=== PATIENT | female | born 1930 | race Caucasian/White ===

== ENCOUNTER 2018-01-29 17:03 | Emergency (ER) | payer MEDICARE, BC ==
[2018-01-29 17:10] VITALS: BP 133/89
[2018-01-29] MEDS ORDERED: Diphtheria,Pertussis(Acell),Tetanus Vaccine 0.5 ML SDV IM ONE (17:25)
--- NOTE | 2018-01-29 19:14 | EDM.PDOC ---
ED HPI GENERAL MEDICAL PROBLEM - General Chief Complaint: Head Injury Stated Complaint: [facility] Time Seen by Provider: 01/29/18 17:12 Source of Information: Reports: Patient, RN Notes Reviewed - History of Present Illness INITIAL COMMENTS - FREE TEXT/NARRATIVE: 87 year old female tripped cutting dandelions along a street, lost her balance, fell forward injuring R knee, R face. Small lac R face with some bleeding initially. No Mann at this time, no LOC, no chest pain or difficulty breathing. On coumadin. Face Pain Score (Numeric/FACES): 4 - Related Data Allergies Allergy/AdvReac Type Severity Reaction Status Date / Time cephalexin Allergy Delusions Verified 01/29/18 17:06 Iodinated Contrast- Oral and Allergy Itching Verified 01/29/18 17:06 IV Dye [Iodinated Contrast Media - IV Dye] oxycodone [Oxycodone] Allergy Dizziness Verified 01/29/18 17:06 pentazocine lactate Allergy Cannot Verified 01/29/18 17:06 [From Diamond] Remember Home Meds: Home Meds Diltiazem HCl [Diltiazem 24Hr Cd] 240 mg PO DAILY 07/09/14 [History] Docusate Sodium 100 mg PO BID PRN 07/09/14 [History] Fluticasone Propionate [Flonase] 16 gm NS DAILY 07/09/14 [History] LORazepam 0.25 mg PO TID PRN 07/09/14 [History] Omeprazole [Prilosec] 10 mg PO DAILY 07/09/14 [History] Potassium Chloride 10 meq PO DAILY 07/09/14 [History] Warfarin [Coumadin] 5 mg PO SUTUTHSA 07/09/14 [History] Warfarin [Coumadin] 7.5 mg PO MOWEFR 07/09/14 [History] Escitalopram [Lexapro] 15 mg PO DAILY 09/11/15 [History] Fluticasone Propionate [Flovent] 2 puff INH BID 09/11/15 [History] Levalbuterol HCl [Xopenex] 0.63 mg INH ASDIRECTED 09/11/15 [History] Past Medical History - Past Health History Medical/Surgical History: Denies Medical/Surgical History HEENT History: Reports: Impaired Vision Cardiovascular History: Reports: Afib, High Cholesterol Other Respiratory History: seasonal allergies Gastrointestinal History: Reports: Chronic Constipation, GERD, Hiatal Hernia PUBLISHING EDITOR History: Reports: Musculoskeletal History: Reports: Other (See Below) Other Musculoskeletal History: fractured right ankle Neurological History: Reports: Migraines Psychiatric History: Reports: Anxiety, Depression Other Hematologic History: Factor 5 Dermatologic History: Reports: Other (See Below) 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 - Infectious Disease History Infectious Disease History: Reports: C-Difficile, Shingles, Other (See Below) Other Infectious Disease History: scarletina - Past Surgical History HEENT Surgical History: Reports: Cataract Surgery Social & Family History - Tobacco Use Smoking Status *Q: Former Smoker Used Tobacco, but Quit: No ED ROS GENERAL - Review of Systems Review Of Systems: See Below Constitutional: Denies: Fever, Chills, Diaphoresis HEENT: Denies: Ear Discharge, Nosebleed, Vertigo, Vision Change Respiratory: Denies: Shortness of Breath Cardiovascular: Denies: Chest Pain GI/Abdominal: Denies: Abdominal Pain, Nausea, Vomiting Musculoskeletal: Reports: Joint Pain (R knee). Denies: Neck Pain, Shoulder Pain Skin: Reports: Bruising (R face, infraorbital) Neurological: Reports: Dizziness (gone). Denies: Headache, Numbness, Syncope, Tingling, Trouble Speaking, Difficulty Walking, Weakness ED EXAM, HEAD INJURY - Physical Exam Exam: See Below General Appearance: Alert, Mild Distress Head: Facial Swelling, Facial Tenderness, Other (large hematoma below R eye, no forehead or scalp injury, 1.5 cm shallow lac R face, non gaping) Eyes: Bilateral Eye: PERRL Ears: Normal External Exam Nose: Normal Inspection Throat/Mouth: Normal Inspection, Normal Oropharynx Neck: Non-Tender, Full Range of Motion Respiratory: No Respiratory Distress, Normal Breath Sounds, Chest Non-Tender Cardiovascular: Regular Rate, Rhythm GI/Abdominal Exam: Soft, Non-Tender Back Exam: No: Paraspinal Tenderness, Vertebral Tenderness Extremities: Joint Swelling (mild, R knee, some pain with motion R knee) Neurologic: No Motor/Sensory Deficits, Normal Mood/Affect, Oriented x 3 Skin: Warm/Dry Course - Vital Signs Last Recorded V/S: Last Vital Signs Temp 97.6 F 01/29/18 17:06 Pulse 79 01/29/18 17:06 Resp 18 05/09/18 17:06 BP 133/89 01/29/18 17:06 Pulse Ox 94 L 01/29/18 17:06 - Orders/Labs/Meds Orders: Active Orders 24 hr Category Date Time Status Vaccines to be Administered [RC] PER UNIT ROUTINE Care 01/29/18 17:26 Active Head wo Cont [CT] Stat Exams 01/29/18 17:25 Taken Knee Min 4V Rt [CR] Stat Exams 01/29/18 18:27 Taken Max Facial Sinus wo Cont [CT] Stat Exams 01/29/18 17:25 Taken Labs: Laboratory Tests 01/29/18 Range/Units 17:45 PT 24.3 H (9.5-12.1) SECONDS INR 2.27 Meds: Medications Discontinued Medications Generic Name Dose Route Start Last Admin Trade Name Freq PRN Reason Stop Dose Admin Diphtheria/Tetanus/Acell Pertussis 0.5 ml 01/29/18 17:25 01/29/18 17:34 Adacel IM 01/29/18 17:26 0.5 ml .ONCE ONE Administration - Re-Assessments/Exams Free Text/Narrative Re-Assessment/Exam: 01/29/18 19:11 CT of head and face is good, PT INR is good, R knee, no fx. facial lac is very superfiscial, will steristrip that. Departure - Departure Time of Disposition: 19:12 Disposition: Home, Self-Care 01 Condition: Fair Clinical Impression: Fall Qualifiers: Encounter type: initial encounter Qualified Code(s): W19.XXXA - Unspecified fall, initial encounter Facial contusion Qualifiers: Encounter type: initial encounter Qualified Code(s): S00.83XA - Contusion of other part of head, initial encounter Facial laceration Qualifiers: Encounter type: initial encounter Qualified Code(s): S01.81XA - Laceration without foreign body of other part of head, initial encounter Knee contusion Qualifiers: Encounter type: initial encounter Laterality: right Qualified Code(s): S80.01XA - Contusion of right knee, initial encounter - Discharge Information Instructions: Eye Contusion, [id number] Referrals: Elliott Parrish MD [Primary Care Provider] - Forms: ED Department Discharge Additional Instructions: ice packs and elevation to areas of injury. steristrips R facial laceration. Try keep those on for 5 to 7 days. INR today was good at 2.27. You may safely continue coumadin at current dosage. Follow up clinic as needed, return to ED as needed. - My Orders Last 24 Hours: My Active Orders 01/29/18 17:25 Head wo Cont [CT] Stat Max Facial Sinus wo Cont [CT] Stat 01/29/18 17:26 Vaccines to be Administered [RC] PER UNIT ROUTINE 01/29/18 18:27 Knee Min 4V Rt [CR] Stat - Assessment/Plan Last 24 Hours: My Active Orders 01/29/18 17:25 Head wo Cont [CT] Stat Max Facial Sinus wo Cont [CT] Stat 01/29/18 17:26 Vaccines to be Administered [RC] PER UNIT ROUTINE 01/29/18 18:27 Knee Min 4V Rt [CR] Stat
--- NOTE | 2018-01-30 10:20 | CT ---
CT paranasal sinuses Technique: Multiple axial sections through the paranasal sinuses were obtained. Reconstructed coronal and sagittal images were reviewed. Findings: Paranasal sinuses are clear. No mucosal thickening or air-fluid levels are seen. Surrounding bony structures are intact. Ostiomeatal complexes are clear. Mild increased density compatible with soft tissue swelling seen within the right cheek. Impression: 1. Mild soft tissue swelling within the right cheek. 2. No additional abnormality is identified on CT study of the paranasal sinuses. Diagnostic code #2 I agree with preliminary report from [facility], finalized at 01/29/18, 7:35 PM Central Time
--- NOTE | 2018-01-30 10:20 | CT ---
Head CT Technique: Multiple axial sections through the brain were obtained. Intravenous contrast was not utilized. Comparison: Prior head CT study of 07/14/14. Findings: Ventricles along the basal cisterns and sulci over the convexities are moderately prominent. Diffuse diminished density noted within the basal ganglia, periventricular and subcortical white matter compatible with small vessel ischemic demyelination change. No other abnormal parenchymal densities are seen. No evidence of intracranial hemorrhage. No midline shift or mass effect is seen. Bone window settings were reviewed which show no acute calvarial abnormality. Visualized sinuses are clear. Impression: 1. Senescent change as described above. 2. No acute intracranial abnormality is appreciated. Diagnostic code #1 I agree with preliminary report from [facility], finalized at 01/29/18, 7:32 PM Central Time
--- NOTE | 2018-01-30 10:20 | CR ---
Right knee: Four views of the right knee were obtained. Comparison: No prior knee exam. Moderate lateral joint space narrowing is seen. Medial joint appears maintained. Chondrocalcinosis is noted within the lateral and medial meniscus. No joint effusion is seen. No fracture or other bony abnormality is seen. Impression: 1. Chondrocalcinosis. Lateral joint space narrowing. 2. Right knee study is otherwise unremarkable. Diagnostic code #2
== END 2018-01-29 19:41 | disposition home or self-care (01) ==
LOC: JD.ED 17:03
DX: S01.81XA Laceration without foreign body of other part of head, initial encounter (principal); I48.91 Unspecified atrial fibrillation; Z23 Encounter for immunization; E78.00 Pure hypercholesterolemia, unspecified; Z87.891 Personal history of nicotine dependence; Z79.01 Long term (current) use of anticoagulants; Z79.899 Other long term (current) drug therapy; Z88.8 Allergy status to other drugs, medicaments and biological substances; Z88.1 Allergy status to other antibiotic agents; Z91.041 Radiographic dye allergy status; W19.XXXA Unspecified fall, initial encounter
CPT/HCPCS: 36415; 70450; 70450-26; 70486; 70486-26; 73564-26-RT; 73564-RT; 85610; 90471; 90715; 99283; 99285-25

== ENCOUNTER 2018-09-22 22:33 | Emergency (ER) | payer MEDICARE, BC ==
[2018-09-22 22:39] VITALS: BP 133/79
--- NOTE | 2018-09-23 02:45 | ER ---
REASON FOR EMERGENCY ROOM VISIT: Head trauma. HISTORY OF PRESENT ILLNESS: This 88-year-old woman is brought in by ambulance after she suffered a fall in her bedroom, striking the right side of her posterior head on a nightstand. She suffered no loss of consciousness. Denies any pain. Denies any visual symptoms. Has had no nausea. She denies any numbness or weakness. She has had no slurred speech. She had been on Coumadin for atrial fibrillation as well as a deep vein thrombosis in the past, and because of this, quite possibly she developed a hematoma in the scalp secondary to this fall. She has had recent flare-ups of what has been a chronic issue with back pain and right-sided sciatica and for this, she has been prescribed hydrocodone. Her daughter who assists her a great deal has been administering her hydrocodone. The dose has varied from none to 1/2 a tablet to a full tablet depending on the patient's experiencing various unwanted side effects of the hydrocodone. Tonight, she took a full tablet and the daughter feels that this might have played a role in her accident, however, she has been in here at least a couple of times in the past year or so for similar falls. She has had a walker at home for quite some time, which she uses and she states that she really does not have to use a walker, but she likes to have it for "security," which I think is a reasonable idea. The daughter is understandably somewhat frustrated because Amparo has been increasingly demanding of her time and she feels exasperated, particularly since siblings do not seem to pitch in and help as much as she does. PAST MEDICAL HISTORY: Reviewed in her electronic medical record and it includes the followin. Atrial fibrillation. 2. Deep vein thrombosis. 3. Hiatal hernia and gastroesophageal reflux disease. 4. History of sciatica and low back pain issues. 5. Right ankle fracture. 6. Knee surgery. CURRENT MEDICATIONS: Reviewed from her electronic medical record and include the following: Diltiazem, docusate sodium, Flonase, paroxetine, omeprazole, Coumadin, escitalopram, levalbuterol inhaler, vitamins, and lorazepam. Her current Coumadin regimen is 5 mg daily except 7.5 mg on Wednesdays and Saturdays. Her daughter states that she is targeted for an INR of 2.5-3.0. REVIEW OF SYSTEMS: Pertinent positives and negatives as listed in the HPI. PHYSICAL EXAMINATION: GENERAL: An elderly woman who is alert, comfortable, and in no acute distress. VITAL SIGNS: She is afebrile, heart rate is 70, blood pressure 133/79, respiratory rate 16, O2 saturations 94% on room air. HEENT: She has a scalp hematoma over the right occipital parietal area. It is smaller than a hen's egg and is soft and nontender. There is no bony crepitus palpated here. There is no laceration. She has no hemotympanum noted. No other trauma could be identified about the head and face. No facial bone tenderness or asymmetry. Oropharynx is normal. NECK: Nontender and supple. CHEST: Clear to auscultation. There is no chest wall tenderness. CARDIAC: Regular rate without murmur. ABDOMEN: Soft, nontender. No bruising. EXTREMITIES: She has bilateral lower extremity edema, which is moderate. Her toes and feet are pink and warm. No deformities or external evidence of trauma. LABORATORY DATA: Her PT is 14.6 with an INR of 3.92. A CT scan was done of her head because of the mechanism of injury and her being over anticoagulated, this was negative for any acute process. IMPRESSION: 1. Hematoma, right scalp, without any loss of consciousness or evidence of concussion. 2. Increasing difficulties with ambulation, etc. 3. INR elevated outside of therapeutic range. PLAN: I recommended that they hold her dose of Coumadin tomorrow evening and have her PT/INR checked promptly on Saturday morning and to check in with the anticoagulation nurse for further instructions on Saturday once the PT and INR results are back. With regard to her sciatica and low back issues, I think I explained to the daughter that I would have to defer to her primary care provider to assess and determine what if anything more can be done about this. This is not a matter that can be resolved in the emergency room, and since she has adequate pain medication, I really do not have anything more to offer at this juncture. The patient timed in and said "I don't have any pain now. I feel okay" and also stated that she is able to get around alright, although one would tend to disagree. All questions were answered, they agree and understand. MMODAL /[id number]
--- NOTE | 2018-09-23 09:11 | CT ---
Head CT Technique: Multiple axial sections through the brain were obtained. Intravenous contrast was not utilized. Comparison: Prior head CT study of 01/29/18. Findings: Ventricles along with basal cisterns and sulci over the convexities are moderately prominent. Scattered diminished densities are seen within the periventricular and subcortical white matter compatible with small vessel ischemic demyelination change. Several old lacunar infarcts are noted within the basal ganglia. No other abnormal parenchymal densities are seen. No evidence of intracranial hemorrhage. No midline shift or mass effect is seen. Bone window settings were reviewed which show no acute calvarial abnormality. Visualized sinuses are clear. Impression: 1. Senescent change as noted above. No acute intracranial abnormality is appreciated. No significant change is seen from previous study. Diagnostic code #2 I agree with preliminary report from [facility], finalized on 09/23/18, 12:43 AM Central Time
== END 2018-09-23 00:55 | disposition home or self-care (01) ==
LOC: JD.ED 22:33
DX: S00.03XA Contusion of scalp, initial encounter (principal); I48.91 Unspecified atrial fibrillation; K21.9 Gastro-esophageal reflux disease without esophagitis; Z98.890 Other specified postprocedural states; Z79.01 Long term (current) use of anticoagulants; W18.09XA Striking against other object with subsequent fall, initial encounter
CPT/HCPCS: 36415; 70450; 70450-26; 85610; 99283; 99285-25

== ENCOUNTER 2018-09-24 12:50 | Inpatient (IN) | payer MEDICARE, BC ==
--- NOTE | 2018-09-24 13:55 | EDM.PDOC ---
ED HPI GENERAL MEDICAL PROBLEM - General Chief Complaint: Lower Extremity Injury/Pain Stated Complaint: [facility] Time Seen by Provider: 09/24/18 13:05 Source of Information: Reports: Patient, Family (2 daughters), RN Notes Reviewed History Limitations: Reports: Altered Mental Status (Patient is a poor historian ) - History of Present Illness INITIAL COMMENTS - FREE TEXT/NARRATIVE: According to the patient's 2 daughters, who had accompanied the patient to the ED, the patient had some difficulty getting out of a low car on 09/12/2018, and may have injured her right lower extremity. She essentially stopped using it. She was seen at the walk-in clinic for that purpose the following day, 2017, where an x-ray of the right hip is reported as negative. The patient was prescribed Tylenol 3 (Tylenol with codeine). Initially the patient's daughters gave the patient half a tablet every 6 hours, however, the patient began hallucinating, therefore they discontinued it altogether around 09/16/2018, and just gave her regular Tylenol 500 mg. That proved to be ineffective to treat the patient's right lower extremity pain, therefore they resumed the Tylenol 3 around 09/21/2018. The patient then fell backwards on 09/22/2018, and was evaluated in this ED. A CT scan of the head found senescent changes and a scalp hematoma, but no other intracranial injury. The patient was discharged home, but the patient's daughters Jose De Jesus that they had difficulty getting the patient into the house. The patient had slumped to the floor, and required pulling into the house on a bed sheet. Since then, however, the daughters have increased the patient's dose to 1 full T3 every 6 hours, which they Jose De Jesus appears to be working to treat the patient's pain. Patient is now able to ambulate at least a short distance using a walker. The patient is now brought back to the ED because the patient's daughters do not feel that they can continue to manage her at home. They suspect that the patient is likely suffering from early dementia. They would like the patient to be placed into a assisted. Additionally, they are concerned that the patient may have a right lower extremity injury that has not been diagnosed, and , lastly, the patient is due to have her INR checked today. The patient's PCP is Dr. Parrish. The patient has not seen Dr. Parrish about any of the above concerns. right outer hip/right heel Pain Score (Numeric/FACES): 1 - Related Data Allergies Allergy/AdvReac Type Severity Reaction Status Date / Time cephalexin Allergy Delusions Verified 09/24/18 13:07 Iodinated Contrast- Oral and Allergy Itching Verified 09/24/18 13:07 IV Dye [Iodinated Contrast Media - IV Dye] oxycodone [Oxycodone] Allergy Dizziness Verified 09/24/18 13:07 pentazocine lactate Allergy Cannot Verified 09/24/18 13:07 [From Diamond] Remember Home Meds: Home Meds Diltiazem HCl [Diltiazem 24Hr Cd] 240 mg PO DAILY 07/09/14 [History] Docusate Sodium 100 mg PO BID PRN 07/09/14 [History] Fluticasone Propionate [Flonase] 16 gm NS DAILY 07/09/14 [History] LORazepam 0.25 mg PO TID PRN 07/09/14 [History] Omeprazole [Prilosec] 10 mg PO DAILY 07/09/14 [History] Potassium Chloride 10 meq PO DAILY 07/09/14 [History] Warfarin [Coumadin] 5 mg PO SUMOTUTHFR 07/09/14 [History] Warfarin [Coumadin] 7.5 mg PO WESA 07/09/14 [History] Fluticasone Propionate [Flovent] 2 puff INH BID 09/11/15 [History] Levalbuterol HCl [Xopenex] 0.63 mg INH ASDIRECTED 09/11/15 [History] Albuterol Sulfate [Proair Respiclick] 2 puff INH Q4H PRN 09/22/18 [History] Ferrous Sulfate 325 mg PO DAILY 09/22/18 [History] Multivit with Iron,Minerals [Spectravite Senior] 1 tab PO DAILY 09/22/18 [ History] PARoxetine [Paxil CR] 25 mg PO DAILY 09/22/18 [History] Pyridoxine HCl [Vitamin B-6] 1 tab PO DAILY 09/22/18 [History] Thiamine HCl [Vitamin B-1] 50 mg PO DAILY 09/22/18 [History] atorvaSTATin [Lipitor] 10 mg PO DAILY 09/22/18 [History] Past Medical History HEENT History: Reports: Allergic Rhinitis, Impaired Vision Cardiovascular History: Reports: Afib (paroxysmal), Blood Clots/VTE/DVT, High Cholesterol (untreated) Gastrointestinal History: Reports: GERD, Hiatal Hernia Genitourinary History: Reports: Chronic Renal Insuffiency, Urinary Incontinence (stress incontinence) [employer] History: Reports: Musculoskeletal History: Reports: Fracture (right ankle) Neurological History: Reports: Other (See Below) (Early dementia likely) Psychiatric History: Reports: Anxiety, Depression Endocrine/Metabolic History: Reports: Obesity/BMI 30+ Oncologic (Cancer) History: Reports: Basal Cell Carcinoma (forehead) - Infectious Disease History Infectious Disease History: Reports: C-Difficile, Shingles - Past Surgical History HEENT Surgical History: Reports: Cataract Surgery GI Surgical History: Reports: Appendectomy Musculoskeletal Surgical History: Reports: ORIF (right ankle) Social & Family History - Family History Family Medical History: Noncontributory - Tobacco Use Smoking Status *Q: Former Smoker Years of Tobacco use: 33 Packs/Tins Daily: 1 Month/Year Tobacco Last Used: Quit 1980 - Caffeine Use Caffeine Use: Reports: Coffee - Alcohol Use Alcohol Use History: Yes Alcohol Use Frequency: Socially - Recreational Drug Use Recreational Drug Use: No - Living Situation & Occupation Living situation: Reports: , Alone Occupation: Retired ED ROS GENERAL - Review of Systems Review Of Systems: ROS reveals no pertinent complaints other than HPI. ED EXAM, GENERAL - Physical Exam Exam: See Below Exam Limited By: No Limitations General Appearance: Alert, WD/WN, No Apparent Distress Eye Exam: Bilateral Eye: EOMI Ears: Normal External Exam, Hearing Loss Nose: Normal Inspection Throat/Mouth: Normal Inspection, Normal Lips, Normal Voice, No Airway Compromise Head: Atraumatic, Normocephalic Neck: Normal Inspection, Full Range of Motion Respiratory/Chest: No Respiratory Distress, Lungs Clear, Normal Breath Sounds, No Accessory Muscle Use Cardiovascular: Normal Peripheral Pulses, Regular Rate, Rhythm, No Gallop, No JVD, No Murmur, No Rub Peripheral Pulses: 4+: Radial (L), Radial (R) GI/Abdominal: Normal Bowel Sounds, Soft, Non-Tender, No Organomegaly, No Distention, No Abnormal Bruit, No Mass, Other (Obese) (Female) Exam: Deferred Rectal (Female) Exam: Deferred Back Exam: Normal Inspection, Full Range of Motion, NT Extremities: Normal Inspection, Normal Range of Motion, Non-Tender (to the right hip), No Pedal Edema, Normal Capillary Refill, Other (Mild pain induced in the mid-right thigh with flexion and internal/external roation of the RLE. Otherwise nontender.) Neurological: Alert, No Motor/Sensory Deficits, Confused (poor historian) Psychiatric: Normal Affect Skin Exam: Warm, Dry, Intact, Normal Color, No Rash Course - Vital Signs Last Recorded V/S: Last Vital Signs Temp 36.4 C 09/24/18 12:50 Pulse 78 09/24/18 12:50 Resp 19 09/24/18 12:50 BP 110/99 H 09/24/18 12:50 Pulse Ox 92 L 09/24/18 12:50 - Orders/Labs/Meds Orders: Active Orders 24 hr Category Date Time Status Urinary Catheter Assessment [RC] ASDIRECTED Care 09/24/18 15:28 Active Urinary Catheter Insertion [Insert Urinary Catheter] [ Care 09/24/18 15:27 Ordered OM.PC] Stat Consult to Case Management/Adjunct Professor Of Law [CONS] Cons 09/24/18 13:14 Ordered ONETIME Labs: Laboratory Tests 09/24/18 09/24/18 09/24/18 Range/Units 14:00 14:00 14:00 WBC 5.31 (3.98-10.04) K/mm3 RBC 3.86 L (3.98-5.22) M/mm3 Hgb 12.1 (11.2-15.7) gm/L Hct 39.3 (34.1-44.9) % MCV 101.8 H (79.4-94.8) fl MCH 31.3 (25.6-32.2) pg MCHC 30.8 L (32.2-35.5) g/dl RDW Std Deviation 48.6 H (36.4-46.3) fL Plt Count 212 (182-369) K/mm3 MPV 9.8 (9.4-12.3) fl Neutrophils % (Manual) 67 H (40-60) % Band Neutrophils % 0 (0-10) % Lymphocytes % (Manual) 20 (20-40) % Atypical Lymphs % 3 % Monocytes % (Manual) 4 (2-10) % Eosinophils % (Manual) 6 H (0.7-5.8) % Basophils % (Manual) 0 L (0.1-1.2) Platelet Estimate Adequate Plt Morphology Comment Normal Anisocytosis 1+ slight Microcytosis 1+ slight Macrocytosis 1+ slight RBC Morph Comment PT 45.0 H (9.5-12.1) SECONDS INR 4.25 Sodium 139 (136-145) mEq/L Potassium 4.9 (3.5-5.1) mEq/L Chloride 104 (98-107) mEq/L Carbon Dioxide 30 (21-32) mEq/L Anion Gap 9.9 (5-15) BUN 23 H (7-18) mg/dL Creatinine 1.3 H (0.55-1.02) mg/dL Est Cr Clr Drug Dosing 23.20 mL/min Estimated GFR (MDRD) 39 (>60) mL/min BUN/Creatinine Ratio 17.7 (14-18) Glucose 104 (83-115) mg/dL Calcium 8.9 (8.5-10.1) mg/dL Magnesium 2.1 (1.8-2.4) mg/dl Total Bilirubin 0.4 (0.2-1.0) mg/dL AST 19 (15-37) U/L ALT 18 (14-59) U/L Alkaline Phosphatase 87 (46-116) U/L Troponin I < 0.017 (0.00-0.056) ng/mL Total Protein 7.0 (6.4-8.2) g/dl Albumin 3.0 L (3.4-5.0) g/dl Globulin 4.0 gm/dL Albumin/Globulin Ratio 0.8 L (1-2) Urine Color (Yellow) Urine Appearance (Clear) Urine pH (5.0-8.0) Ur Specific [place]ford (1.005-1.030) Urine Protein (Negative) Urine Glucose (UA) (Negative) Urine Ketones (Negative) Urine Occult Blood (Negative) Urine Nitrite (Negative) Urine Bilirubin (Negative) Urine Urobilinogen (0.2-1.0) Ur Leukocyte Esterase (Negative) Urine RBC (0-5) /hpf Urine WBC (0-5) /hpf Ur Epithelial Cells (0-5) /hpf Urine Bacteria (FEW) /hpf Urine Mucus (FEW) /hpf 09/24/18 Range/Units 15:26 WBC (3.98-10.04) K/mm3 RBC (3.98-5.22) M/mm3 Hgb (11.2-15.7) gm/L Hct (34.1-44.9) % MCV (79.4-94.8) fl MCH (25.6-32.2) pg MCHC (32.2-35.5) g/dl RDW Std Deviation (36.4-46.3) fL Plt Count (182-369) K/mm3 MPV (9.4-12.3) fl Neutrophils % (Manual) (40-60) % Band Neutrophils % (0-10) % Lymphocytes % (Manual) (20-40) % Atypical Lymphs % % Monocytes % (Manual) (2-10) % Eosinophils % (Manual) (0.7-5.8) % Basophils % (Manual) (0.1-1.2) Platelet Estimate Plt Morphology Comment Anisocytosis Microcytosis Macrocytosis RBC Morph Comment PT (9.5-12.1) SECONDS INR Sodium (136-145) mEq/L Potassium (3.5-5.1) mEq/L Chloride (98-107) mEq/L Carbon Dioxide (21-32) mEq/L Anion Gap (5-15) BUN (7-18) mg/dL Creatinine (0.55-1.02) mg/dL Est Cr Clr Drug Dosing mL/min Estimated GFR (MDRD) (>60) mL/min BUN/Creatinine Ratio (14-18) Glucose (83-115) mg/dL Calcium (8.5-10.1) mg/dL Magnesium (1.8-2.4) mg/dl Total Bilirubin (0.2-1.0) mg/dL AST (15-37) U/L ALT (14-59) U/L Alkaline Phosphatase (46-116) U/L Troponin I (0.00-0.056) ng/mL Total Protein (6.4-8.2) g/dl Albumin (3.4-5.0) g/dl Globulin gm/dL Albumin/Globulin Ratio (1-2) Urine Color Yellow (Yellow) Urine Appearance Clear (Clear) Urine pH 6.0 (5.0-8.0) Ur Specific [place]ford 1.025 (1.005-1.030) Urine Protein Negative (Negative) Urine Glucose (UA) Negative (Negative) Urine Ketones Negative (Negative) Urine Occult Blood Trace-lysed H (Negative) Urine Nitrite Negative (Negative) Urine Bilirubin Negative (Negative) Urine Urobilinogen 0.2 (0.2-1.0) Ur Leukocyte Esterase Negative (Negative) Urine RBC 0-5 (0-5) /hpf Urine WBC 0-5 (0-5) /hpf Ur Epithelial Cells 0-5 (0-5) /hpf Urine Bacteria Few (FEW) /hpf Urine Mucus Few (FEW) /hpf - Re-Assessments/Exams Free Text/Narrative Re-Assessment/Exam: 09/24/18 13:52 The daughters report that the patient's ambulation has improved while she is on a full tablet of Tylenol 3 every 6 hours, and that she is able to ambulate at least some distance with a walker, however, the real reason that the patient is here is because the 2 daughters don't feel that they can manage her at home anymore, and they would like to have her admitted to a assisted. Angy, the social work therapist, has been contacted. In the meantime, I have ordered some blood work, urinalysis, and portable chest radiograph to rule out an illness that may be contributing to the patient's confusion. On examination, the patient does not have any hip pain to palpation, flexion, or internal or external rotation of the hip. She has some mid-thigh pain on examination, which appears to be muscular, but no joints are involved. I don't see a need for x-rays today. 09/24/18 14:17 Portable chest radiograph reviewed. There is cardiomegaly, but no pulmonary vascular congestion to suggest decompensated CHF. No pleural effusions seen on this AP view. No focal infiltrate. No pneumothorax. Hiatal hernia incidentally noted. Formal read per the Radiologist pending. 09/24/18 16:12 Test results discussed with the patient, her 2 daughters, and with Dr. Machado. A letter from [facility] has confirmed their intention to accept the patient tomorrow. The patient will be placed into observation here tonight. Her Coumadin will be withheld, secondary to a supratherapeutic INR today. Departure - Departure Time of Disposition: 16:06 Disposition: Refer to Observation Condition: Fair Clinical Impression: Supratherapeutic INR, Self-care deficit in patient living alone, Pain of right lower extremity - Discharge Information *PRESCRIPTION DRUG MONITORING PROGRAM REVIEWED*: Not Applicable *COPY OF PRESCRIPTION DRUG MONITORING REPORT IN PATIENT VINH: Not Applicable Referrals: Elliott Parrish MD [Primary Care Provider] - - My Orders Last 24 Hours: My Active Orders 09/24/18 13:14 Consult to Case Management/Adjunct Professor Of Law [CONS] ONETIME 09/24/18 15:27 Urinary Catheter Insertion [Insert Urinary Catheter] [OM.PC] Stat 09/24/18 15:28 Urinary Catheter Assessment [RC] ASDIRECTED - Assessment/Plan Last 24 Hours: My Active Orders 09/24/18 13:14 Consult to Case Management/Adjunct Professor Of Law [CONS] ONETIME 09/24/18 15:27 Urinary Catheter Insertion [Insert Urinary Catheter] [OM.PC] Stat 09/24/18 15:28 Urinary Catheter Assessment [RC] ASDIRECTED
--- NOTE | 2018-09-24 14:40 | CR ---
Chest: Portable view of the chest was obtained. Comparison: Prior chest x-ray of 12/17/17. Large hiatal hernia is noted. Heart is enlarged. Upper mediastinum is within normal limits. Lungs are clear with no acute parenchymal change. Bony structures are osteopenic. Impression: 1. Large hiatal hernia and cardiomegaly. 2. Nothing acute is otherwise seen on frontal chest x-ray. Diagnostic code #2
[2018-09-24] MEDS ORDERED: DOCUSATE SODIUM 100 MG PO PRN (19:52)
[2018-09-24] MEDS ORDERED: ALPHA LIPOIC ACID 600 MG PO PRN (19:52)
[2018-09-24] MEDS ORDERED: LEVALBUTEROL HCL INH PRN (19:52)
[2018-09-24] MEDS ORDERED: Polyethylene Glycol 3350 Powder 17 GM Packet PO PRN (19:55)
[2018-09-24] MEDS ORDERED: Bisacodyl 5 MG Tab PO PRN (19:55)
[2018-09-24] MEDS ORDERED: Magnesium Hydroxide 400 MG/5 ML Susp 30 ML Cup PO PRN (19:55)
[2018-09-24] MEDS ORDERED: Non-Formulary Medication 1 Each (Warfarin [Coumadin] 7.5 MG) PO SCH (20:00)
[2018-09-24] MEDS ORDERED: THIAMINE HCL 50 MG PO SCH (20:00)
[2018-09-24] MEDS ORDERED: GUAIFENESIN PO SCH (20:00)
[2018-09-24] MEDS ORDERED: PSEUDOEPHEDRNE HCL PO SCH (20:00)
[2018-09-24] MEDS ORDERED: diphenhydrAMINE 25 MG Cap PO PRN (20:11)
--- NOTE | 2018-09-24 20:42 | PCM.HP ---
H&P History of Present Illness - General Date of Service: 09/24/18 Admit Problem/Dx: Admission Diagnosis/Problem Admission Diagnosis/Problem INR (international normal ratio) abnormal Source of Information: Patient History Limitations: Reports: No Limitations - History of Present Illness Initial Comments - Free Text/Narative: HPI: This is an 88 yo female with past medical hx/o Paroxysmal Afib, DVT/VTE, HLD, GERD, Hiatal Hernia, CKD, Urinary Incontinence, Depression, Anxiety, Obesity, Basal Cell Carcinoma of forehead, h/o Cdiff who comes in for assisted living placement. Her initial workup in the ED shows a CBC remarkable for RBC 3.86, MCV 101.8, MCHC 30.8, RDW 48.6, Neut 67% with no bandemia, Eosinophils 6%. Coagulation studies show PT 45, INR 4.25. Her chemistry is remarkable for BUN 23, Cr 1.3, GFR 39, Albumin 3. UA is not impressive for UTI. CXR shows nothing acute. She is subsequently admitted to the medical floor on telemetry. She is a DNR/ DNI. Her PCP is Dr. Parrish. right outer hip/right heel Pain Score (Numeric/FACES): 1 - Related Data Allergies/Adverse Reactions: Allergies Allergy/AdvReac Type Severity Reaction Status Date / Time cephalexin Allergy Delusions Verified 09/24/18 17:43 Iodinated Contrast- Oral and Allergy Itching Verified 09/24/18 17:43 IV Dye [Iodinated Contrast Media - IV Dye] oxycodone [Oxycodone] Allergy Dizziness Verified 09/24/18 17:43 pentazocine lactate Allergy Cannot Verified 09/24/18 17:43 [From Diamond] Remember Home Medications: Home Meds Diltiazem HCl [Diltiazem 24Hr Cd] 180 mg PO DAILY 07/09/14 [History] Docusate Sodium 100 mg PO BID PRN 07/09/14 [History] LORazepam 0.5 mg PO BID PRN 07/09/14 [History] Omeprazole [Prilosec] 10 mg PO BID 07/09/14 [History] Potassium Chloride 10 meq PO DAILY 07/09/14 [History] Warfarin [Coumadin] 5 mg PO SUMOTUTHFR 07/09/14 [History] Warfarin [Coumadin] 7.5 mg PO WESA 07/09/14 [History] Ferrous Sulfate 325 mg PO WEEKLY 09/22/18 [History] PARoxetine [Paxil CR] 25 mg PO DAILY 09/22/18 [History] Acetaminophen with Codeine [Tylenol with Codeine #3 Tablet] 30 - 300 mg PO Q6H PRN 09/24/18 [History] Albuterol [Proventil HFA] 200 puff INH Q6H PRN 09/24/18 [History] Alpha Lipoic Acid 600 mg PO DAILY PRN MDD 1 09/24/18 [History] Budesonide/Formoterol [Symbicort 80-4.5 MCG] 2 puff INH BID 09/24/18 [History] Guaifenesin/Pseudoephedrne HCl [Mucinex D ER Tablet] 1 tab PO Q12H 09/24/18 [ History] Metoprolol Tartrate 12.5 mg PO BID 09/24/18 [History] Non-Formulary Medication [NF Drug] 1 cap PO BID 09/24/18 [History] Past Medical History - Past Health History Medical/Surgical History: Denies Medical/Surgical History HEENT History: Reports: Allergic Rhinitis, Impaired Vision Cardiovascular History: Reports: Afib, Blood Clots/VTE/DVT, High Cholesterol Respiratory History: Reports: Asthma Other Respiratory History: seasonal allergies Gastrointestinal History: Reports: GERD, Hiatal Hernia Genitourinary History: Reports: Chronic Renal Insuffiency, Urinary Incontinence [employer] History: Reports: Musculoskeletal History: Reports: Fracture Other Musculoskeletal History: fractured right ankle Neurological History: Reports: Other (See Below) Psychiatric History: Reports: Anxiety, Depression Endocrine/Metabolic History: Reports: Obesity/BMI 30+, Osteoporosis Hematologic History: Reports: Other (See Below) Other Hematologic History: Factor 5 Oncologic (Cancer) History: Reports: Basal Cell Carcinoma Dermatologic History: Reports: Other (See Below) 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 - Infectious Disease History Infectious Disease History: Reports: C-Difficile, Shingles Other Infectious Disease History: scarletina - Past Surgical History HEENT Surgical History: Reports: Cataract Surgery Cardiovascular Surgical History: Reports: Valve Replacement GI Surgical History: Reports: Appendectomy Musculoskeletal Surgical History: Reports: ORIF Social & Family History - Family History Family Medical History: Noncontributory - Tobacco Use Smoking Status *Q: Unknown Ever Smoked Years of Tobacco use: 33 Packs/Tins Daily: 1 Used Tobacco, but Quit: No Month/Year Tobacco Last Used: Quit 1981 Second Hand Smoke Exposure: No - Caffeine Use Caffeine Use: Reports: Coffee - Recreational Drug Use Recreational Drug Use: No - Living Situation & Occupation Living situation: Reports: , Alone Occupation: Retired H&P Review of Systems - Review of Systems: Review Of Systems: See Below General: Reports: No Symptoms. Denies: Fever, Chills HEENT: Reports: Other ([place] JOLLA) Pulmonary: Reports: No Symptoms. Denies: Shortness of Breath, Cough Cardiovascular: Reports: No Symptoms. Denies: Chest Pain, Blood Pressure Problem Gastrointestinal: Reports: No Symptoms. Denies: Abdominal Pain, Diarrhea, Nausea, Vomiting Genitourinary: Reports: No Symptoms. Denies: Dysuria, Frequency, Burning, Pain , Urgency Musculoskeletal: Reports: Leg Pain (RLE s/p injury) Skin: Reports: No Symptoms Psychiatric: Reports: Confusion Neurological: Reports: Confusion, Difficulty Walking (uses walker; h/o fall), Gait Disturbance (uses walker; h/o fall) Hematologic/Lymphatic: Reports: No Symptoms Immunologic: Reports: No Symptoms Exam - Exam Exam: See Below - Vital Signs Vital Signs: Last Vital Signs Temp 99.0 F 09/24/18 19:38 Pulse 65 09/24/18 20:00 Resp 20 09/24/18 19:38 BP 96/77 09/24/18 19:54 Pulse Ox 92 L 09/24/18 20:00 Weight: 199 lb 14.4 oz - Exam Quality Assessment: DVT Prophylaxis General: Alert HEENT: Conjunctiva Clear, EACs Clear, EOMI, Hearing Intact, Mucosa Moist & [place] , Nares Patent, Normal Nasal Septum, Posterior Pharynx Clear, PERRLA Neck: Supple, Trachea Midline, 2 Lungs: Clear to Auscultation, Normal Respiratory Effort Cardiovascular: Regular Rate, Regular Rhythm GI/Abdominal Exam: Normal Bowel Sounds, Soft, Non-Tender, No Organomegaly, No Distention, No Abnormal Bruit, No Mass, Pelvis Stable (Female) Exam: Deferred Rectal (Female) Exam: Deferred Back Exam: Normal Inspection, Full Range of Motion, NT Extremities: Normal Inspection, Normal Range of Motion, Non-Tender, No Pedal Edema, Normal Capillary Refill Peripheral Pulses: 2+: Posterior Tibial (L), Posterior Tibial (R), Dorsalis Pedis (L), Dorsalis Pedis (R) Skin: Warm, Dry, Intact Neurological: Cranial Nerves Intact (grossly) Psychiatric: Alert - Patient Data Lab Results Last 24 hrs: Laboratory Results - last 24 hr 09/24/18 09/24/18 09/24/18 Range/Units 14:00 14:00 14:00 WBC 5.31 (3.98-10.04) K/mm3 RBC 3.86 L (3.98-5.22) M/mm3 Hgb 12.1 (11.2-15.7) gm/L Hct 39.3 (34.1-44.9) % MCV 101.8 H (79.4-94.8) fl MCH 31.3 (25.6-32.2) pg MCHC 30.8 L (32.2-35.5) g/dl RDW Std Deviation 48.6 H (36.4-46.3) fL Plt Count 212 (182-369) K/mm3 MPV 9.8 (9.4-12.3) fl Neutrophils % (Manual) 67 H (40-60) % Band Neutrophils % 0 (0-10) % Lymphocytes % (Manual) 20 (20-40) % Atypical Lymphs % 3 % Monocytes % (Manual) 4 (2-10) % Eosinophils % (Manual) 6 H (0.7-5.8) % Basophils % (Manual) 0 L (0.1-1.2) Platelet Estimate Adequate Plt Morphology Comment Normal Anisocytosis 1+ slight Microcytosis 1+ slight Macrocytosis 1+ slight RBC Morph Comment PT 45.0 H (9.5-12.1) SECONDS INR 4.25 Sodium 139 (136-145) mEq/L Potassium 4.9 (3.5-5.1) mEq/L Chloride 104 (98-107) mEq/L Carbon Dioxide 30 (21-32) mEq/L Anion Gap 9.9 (5-15) BUN 23 H (7-18) mg/dL Creatinine 1.3 H (0.55-1.02) mg/dL Est Cr Clr Drug Dosing 23.20 mL/min Estimated GFR (MDRD) 39 (>60) mL/min BUN/Creatinine Ratio 17.7 (14-18) Glucose 104 (83-115) mg/dL Calcium 8.9 (8.5-10.1) mg/dL Magnesium 2.1 (1.8-2.4) mg/dl Total Bilirubin 0.4 (0.2-1.0) mg/dL AST 19 (15-37) U/L ALT 18 (14-59) U/L Alkaline Phosphatase 87 (46-116) U/L Troponin I < 0.017 (0.00-0.056) ng/mL Total Protein 7.0 (6.4-8.2) g/dl Albumin 3.0 L (3.4-5.0) g/dl Globulin 4.0 gm/dL Albumin/Globulin Ratio 0.8 L (1-2) Urine Color (Yellow) Urine Appearance (Clear) Urine pH (5.0-8.0) Ur Specific [place] (1.005-1.030) Urine Protein (Negative) Urine Glucose (UA) (Negative) Urine Ketones (Negative) Urine Occult Blood (Negative) Urine Nitrite (Negative) Urine Bilirubin (Negative) Urine Urobilinogen (0.2-1.0) Ur Leukocyte Esterase (Negative) Urine RBC (0-5) /hpf Urine WBC (0-5) /hpf Ur Epithelial Cells (0-5) /hpf Urine Bacteria (FEW) /hpf Urine Mucus (FEW) /hpf 09/24/18 Range/Units 15:26 WBC (3.98-10.04) K/mm3 RBC (3.98-5.22) M/mm3 Hgb (11.2-15.7) gm/L Hct (34.1-44.9) % MCV (79.4-94.8) fl MCH (25.6-32.2) pg MCHC (32.2-35.5) g/dl RDW Std Deviation (36.4-46.3) fL Plt Count (182-369) K/mm3 MPV (9.4-12.3) fl Neutrophils % (Manual) (40-60) % Band Neutrophils % (0-10) % Lymphocytes % (Manual) (20-40) % Atypical Lymphs % % Monocytes % (Manual) (2-10) % Eosinophils % (Manual) (0.7-5.8) % Basophils % (Manual) (0.1-1.2) Platelet Estimate Plt Morphology Comment Anisocytosis Microcytosis Macrocytosis RBC Morph Comment PT (9.5-12.1) SECONDS INR Sodium (136-145) mEq/L Potassium (3.5-5.1) mEq/L Chloride (98-107) mEq/L Carbon Dioxide (21-32) mEq/L Anion Gap (5-15) BUN (7-18) mg/dL Creatinine (0.55-1.02) mg/dL Est Cr Clr Drug Dosing mL/min Estimated GFR (MDRD) (>60) mL/min BUN/Creatinine Ratio (14-18) Glucose (83-115) mg/dL Calcium (8.5-10.1) mg/dL Magnesium (1.8-2.4) mg/dl Total Bilirubin (0.2-1.0) mg/dL AST (15-37) U/L ALT (14-59) U/L Alkaline Phosphatase (46-116) U/L Troponin I (0.00-0.056) ng/mL Total Protein (6.4-8.2) g/dl Albumin (3.4-5.0) g/dl Globulin gm/dL Albumin/Globulin Ratio (1-2) Urine Color Yellow (Yellow) Urine Appearance Clear (Clear) Urine pH 6.0 (5.0-8.0) Ur Specific [place] 1.025 (1.005-1.030) Urine Protein Negative (Negative) Urine Glucose (UA) Negative (Negative) Urine Ketones Negative (Negative) Urine Occult Blood Trace-lysed H (Negative) Urine Nitrite Negative (Negative) Urine Bilirubin Negative (Negative) Urine Urobilinogen 0.2 (0.2-1.0) Ur Leukocyte Esterase Negative (Negative) Urine RBC 0-5 (0-5) /hpf Urine WBC 0-5 (0-5) /hpf Ur Epithelial Cells 0-5 (0-5) /hpf Urine Bacteria Few (FEW) /hpf Urine Mucus Few (FEW) /hpf Result Diagrams: 09/24/18 14:00 09/24/18 14:00 - Problem List (1) Pain of right lower extremity SNOMED Code(s): 075807561 ICD Code: M79.604 - PAIN IN RIGHT LEG Status: Acute Priority: Medium Current Visit: Yes (2) Self-care deficit in patient living alone SNOMED Code(s): 88253562 ICD Code: R46.89 - OTHER SYMPTOMS AND SIGNS INVOLVING APPEARANCE AND BEHAVIOR Status: Acute Priority: High Current Visit: Yes (3) Supratherapeutic INR SNOMED Code(s): 307924583 ICD Code: R79.1 - ABNORMAL COAGULATION PROFILE Status: Acute Priority: High Current Visit: Yes Problem List Initiated/Reviewed/Updated: Yes Orders Last 24hrs: Active Orders 24 hr Category Date Time Status Admission Status [Patient Status] [ADT] Routine ADT 09/24/18 16:55 Active Communication Order [RC] BID Care 09/24/18 18:17 Active May Shower [RC] ASDIRECTED Care 09/24/18 19:55 Active Oxygen Therapy [RC] PRN Care 09/24/18 19:55 Active Up With Assistance [RC] ASDIRECTED Care 09/24/18 19:55 Active Urinary Catheter Insertion [Insert Urinary Catheter] [ Care 09/24/18 15:27 Ordered OM.PC] Stat VTE/DVT Education [RC] PER UNIT ROUTINE Care 09/24/18 19:55 Active Vital Signs [RC] QSHIFT Care 09/24/18 19:55 Active Consult to Case Management/Corporate Accountant [CONS] Cons 09/24/18 13:14 Ordered ONETIME OT Evaluation and Treatment [CONS] Routine Cons 09/24/18 19:55 Active PT Evaluation and Treatment [CONS] Routine Cons 09/24/18 19:55 Active Clear Liquid Diet [DIET] Diet 09/24/18 Dinner Active Heart Healthy Diet [DIET] Diet 09/25/18 Breakfast Active BASIC METABOLIC PANEL,BMP [CHEM] AM Lab 09/25/18 05:11 Ordered CBC WITH AUTO DIFF [HEME] AM Lab 09/25/18 05:11 Ordered MAGNESIUM [CHEM] AM Lab 09/25/18 05:11 Ordered Acetaminophen [Tylenol] Med 09/24/18 20:09 Active 325 mg PO Q4H PRN Acetaminophen with Codeine [Tylenol with Codeine #3 Med 09/24/18 19:52 Pending Tablet] 30 - 300 mg PO Q6H PRN Albuterol Med 09/24/18 19:52 Ordered 200 puff INH Q6H PRN Alpha Lipoic Acid [Alpha Lipoic Acid] Med 09/24/18 19:52 Ordered 600 mg PO DAILY PRN Bisacodyl [Dulcolax] Med 09/24/18 19:55 Active 5 mg PO DAILY PRN Budesonide/Formoterol Med 09/24/18 21:00 Ordered 2 puff INH BID Cholecalciferol (Vitamin D3) [Vitamin D3] Med 09/25/18 09:00 Active 5,000 unit PO DAILY Cyanocobalamin (Vitamin B-12) [Cyanocobalamin Injection Med 09/24/18 20:00 Ordered ] 5,000 mcg IM WEEKLY Diltiazem HCl [Diltiazem 24Hr Cd] Med 09/25/18 09:00 Ordered 180 mg PO DAILY Docusate Sodium [Colace] Med 09/24/18 19:55 Active 100 mg PO BID PRN Docusate Sodium/Sennosides [Senna Plus] Med 09/24/18 19:55 Active 1 tab PO BID PRN Ferrous Sulfate [Ferrous Sulfate] Med 09/24/18 20:00 Pending 325 mg PO ASDIRECTED Fluticasone Propionate [Flovent] Med 09/25/18 09:00 Ordered 1 puff INH DAILY Guaifenesin/Pseudoephedrne HCl Med 09/24/18 20:00 Ordered 1 tab PO Q12H LORazepam [LORazepam] Med 09/24/18 19:52 Ordered 0.5 mg PO BID PRN Levalbuterol HCl [Xopenex] Med 09/24/18 19:52 Ordered 2 puff INH Q6H PRN Magnesium Hydroxide [Milk of Magnesia] Med 09/24/18 19:55 Active 30 ml PO Q12H PRN Metoprolol Tartrate [Metoprolol Tartrate] Med 09/24/18 21:00 Ordered 12.5 mg PO BID Omeprazole Med 09/24/18 20:00 Ordered 10 mg PO ASDIRECTED PARoxetine Med 09/25/18 09:00 Ordered 20 mg PO DAILY Polyethylene Glycol 3350 [MiraLAX] Med 09/24/18 19:55 Active 17 gm PO DAILY PRN Potassium Chloride [Potassium Chloride] Med 09/25/18 09:00 Ordered 10 meq PO DAILY Thiamine HCl [Vitamin B-1] Med 09/24/18 20:00 Pending 50 mg PO ASDIRECTED Vitamin B6-pyridOXINE Med 09/25/18 09:00 Active 25 mg PO DAILY Warfarin [Coumadin] Med 09/25/18 19:52 Pending 5 mg PO SUTUTH Warfarin [Coumadin] Med 09/24/18 20:00 Pending 7.5 mg PO MOWEFRSA diphenhydrAMINE [Benadryl] Med 09/24/18 20:11 Active 25 mg PO Q4H PRN Antiembolic Hose [OM.PC] Per Unit Routine Oth 09/24/18 19:56 Ordered Resuscitation Status Routine Resus Stat 09/24/18 19:55 Ordered Medication Orders Acetaminophen (Tylenol) 325 mg PO Q4H PRN PRN Reason: PAIN Bisacodyl (Dulcolax) 5 mg PO DAILY PRN PRN Reason: Constipation Cholecalciferol (Vitamin D3) 5,000 unit PO DAILY NAVID Diphenhydramine HCl (Benadryl) 25 mg PO Q4H PRN PRN Reason: ALLERGIES Docusate Sodium (Colace) 100 mg PO BID PRN PRN Reason: Constipation Magnesium Hydroxide (Milk Of Magnesia) 30 ml PO Q12H PRN PRN Reason: Constipation Non-Formulary Medication (Acetaminophen With Codeine [Tylenol With Codeine #3 Tablet]) 30 - 300 mg PO Q6H PRN PRN Reason: Pain Non-Formulary Medication (Albuterol) 200 puff INH Q6H PRN PRN Reason: Shortness of Breath Non-Formulary Medication (Alpha Lipoic Acid [Alpha Lipoic Acid]) 600 mg PO DAILY PRN PRN Reason: neuropathy Non-Formulary Medication (Budesonide/Formoterol) 2 puff INH BID NAVID Non-Formulary Medication (Cyanocobalamin (Vitamin B-12) [Cyanocobalamin Injection]) 5,000 mcg IM WEEKLY NAVID Non-Formulary Medication (Diltiazem Hcl [Diltiazem 24hr Cd]) 180 mg PO DAILY NAVID Non-Formulary Medication (Ferrous Sulfate [Ferrous Sulfate]) 325 mg PO ASDIRECTED NAVID Non-Formulary Medication (Fluticasone Propionate [Flovent]) 1 puff INH DAILY [facility] Non-Formulary Medication (Guaifenesin/Pseudoephedrne Hcl) 1 tab PO Q12H NAVID Non-Formulary Medication (Levalbuterol Hcl [Xopenex]) 2 puff INH Q6H PRN PRN Reason: Shortness of Breath Non-Formulary Medication (Lorazepam [Lorazepam]) 0.5 mg PO BID PRN PRN Reason: Anxiety Non-Formulary Medication (Metoprolol Tartrate [Metoprolol Tartrate]) 12.5 mg PO BID NAVID Non-Formulary Medication (Omeprazole) 10 mg PO ASDIRECTED NAVID Non-Formulary Medication (Paroxetine) 20 mg PO DAILY [facility] Non-Formulary Medication (Potassium Chloride [Potassium Chloride]) 10 meq PO DAILY [facility] Non-Formulary Medication (Thiamine Hcl [Vitamin B-1]) 50 mg PO ASDIRECTED NAVID Non-Formulary Medication (Warfarin [Coumadin]) 5 mg PO [facility] Non-Formulary Medication (Warfarin [Coumadin]) 7.5 mg PO MOWEFRSA [facility] Polyethylene Glycol (Miralax) 17 gm PO DAILY PRN PRN Reason: Constipation Pyridoxine HCl (Vitamin B6-Pyridoxine) 25 mg PO DAILY [facility] Senna/Docusate Sodium (Senna Plus) 1 tab PO BID PRN PRN Reason: Constipation Assessment/Plan Comment:: I/P: Acute: Assisted Living Placement * Pt's daughters don't feel they can't manage their mother at home * She has had recent fall/RLE injury * Evaluated in ED for fall on 09/22/18--> CT showed only scalp hematoma * Uses a walker * Daughters suspect new-onset dementia * PT/OT * CM/SW consult for placement Pain of RLE * 09/12/18 had difficulty getting out of car and has had pain since * 08/24/18 Seen in walk-in clinic--> Xray negative; Tylenol 3 prescribed * Pain management PRN * PT/OT Supratherapeutic INR * INR 4.25 * Hold Warfarin for now * Monitor * F/U with PCP Chronic: Paroxysmal Afib DVT/VTE HLD GERD Hiatal Hernia CKD Urinary Incontinence Depression Anxiety Obesity Basal Cell Carcinoma of forehead h/o Cdiff Plan: Transferred to Medical Floor for Observation Other orders as indicated above Routine AM labs Clear liquid, then Heart Healthy Diet in AM PT/OT CM/SW DVT Prophylaxis/GI Prophylaxis Code Status: DNR/DNI; PCP: Dr. Parrish
[2018-09-24] MEDS: BUDESONIDE INH SCH (21:29)
[2018-09-24] MEDS: FORMOTEROL INH SCH (21:29)
[2018-09-24] MEDS: METOPROLOL TARTRATE 25 MG PO SCH (21:46)
[2018-09-24] MEDS: GUAIFENESIN 400 MG PO SCH (22:03)
[2018-09-25] MEDS ORDERED: [UNRECOGNIZED DRUG - OTHER] PO SCH (09:00)
[2018-09-25] MEDS ORDERED: DILTIAZEM PO SCH (09:00)
[2018-09-25] MEDS ORDERED: PAROXETINE 20 MG PO SCH (09:00)
[2018-09-25] MEDS ORDERED: Non-Formulary Medication 1 Each (Fluticasone Propionate [Flovent] 1 PUFF) INH SCH (09:00)
[2018-09-25] MEDS: GUAIFENESIN 400 MG PO SCH ×2 (09:10→20:47)
[2018-09-25] MEDS: Cholecalciferol (Vitamin D3) 5,000 UNIT Tab PO SCH (09:10)
[2018-09-25] MEDS: Vitamin B6-pyridOXINE 50 MG Tab PO SCH (09:10)
[2018-09-25] MEDS: METOPROLOL TARTRATE 25 MG PO SCH ×2 (09:11→20:46)
[2018-09-25] MEDS: OMEPRAZOLE 20 MG PO SCH ×3 (09:12→15:34)
[2018-09-25] MEDS ORDERED: PAROXETINE 10 MG PO SCH (09:30)
[2018-09-25] MEDS: FORMOTEROL INH SCH ×2 (10:02→20:17)
[2018-09-25] MEDS: BUDESONIDE INH SCH ×2 (10:02→20:17)
[2018-09-25] MEDS: Acetaminophen 325 MG Tab PO PRN ×2 (10:42→20:47)
--- NOTE | 2018-09-25 14:55 | CT ---
CT right hip Technique: Multiple axial sections through the right hip were obtained. Reconstructed coronal and sagittal images were obtained. Findings: Subcapital fracture is identified with slight impaction involving the right hip. Bony structures are osteopenic. No additional fracture is appreciated. Degenerative change is partially seen within the lower lumbar spine. Impression: 1. Slightly impacted subcapital fracture within the right hip. 2. Other incidental findings. Diagnostic code #5 Oxygen Tank Filler called report to Luis Antonio Hutchinson at 1312 on 09/25/2018 [facility]
--- NOTE | 2018-09-25 14:58 | PCM.PN ---
- General Info Date of Service: 09/25/18 Admission Dx/Problem (Free Text): Admission Diagnosis/Problem Admission Diagnosis/Problem INR (international normal ratio) abnormal Subjective Update: In to see Amparo. She is laying in bed visiting with her daughter. She is feeling OK today, still has some hip pain but it is controlled at this time. I updated them that there is a right hip fracture and that our orthopedist Dr. Hand has been consulted and will visit with them later today. They are unsure at this time if they want her to get surgery, but will talk about their options with Dr. Hand. All questions and concerns answered. No other concerns from nursing at this time. Angy also joined the visit to talk to them about their options regarding [facility] for a possible rehab stay. Please see SW note for more details. Functional Status: Reports: Pain Controlled, Tolerating Diet, Ambulating (FWW with assistance), Urinating - Review of Systems General: Reports: No Symptoms. Denies: Fever, Chills HEENT: Reports: No Symptoms Pulmonary: Reports: No Symptoms. Denies: Shortness of Breath, Cough Cardiovascular: Reports: No Symptoms. Denies: Chest Pain Gastrointestinal: Reports: No Symptoms. Denies: Abdominal Pain, Diarrhea, Nausea, Vomiting Genitourinary: Reports: No Symptoms Musculoskeletal: Reports: Leg Pain (pain s/p hip fx) Skin: Reports: No Symptoms Neurological: Reports: Confusion, Difficulty Walking, Gait Disturbance. Denies : Numbness, Tingling Psychiatric: Reports: Confusion - Patient Data Vitals - Most Recent: Last Vital Signs Temp 97.5 F 09/25/18 09:07 Pulse 69 09/25/18 11:18 Resp 20 09/25/18 09:07 BP 117/78 09/25/18 11:18 Pulse Ox 92 L 09/25/18 11:18 Weight - Most Recent: 200 lb 1 oz I&O - Last 24 Hours: Intake & Output 09/24/18 09/25/18 09/25/18 22:59 06:59 14:59 Intake Total 200 380 Output Total 150 1050 Balance -150 -850 380 Lab Results Last 24 Hours: Laboratory Results - last 24 hr 09/24/18 09/25/18 09/25/18 Range/Units 15:26 05:45 05:45 WBC 3.97 L (3.98-10.04) K/mm3 RBC 3.62 L (3.98-5.22) M/mm3 Hgb 11.5 (11.2-15.7) gm/L Hct 36.6 (34.1-44.9) % MCV 101.1 H (79.4-94.8) fl MCH 31.8 (25.6-32.2) pg MCHC 31.4 L (32.2-35.5) g/dl RDW Std Deviation 47.7 H (36.4-46.3) fL Plt Count 185 (182-369) K/mm3 MPV 10.6 (9.4-12.3) fl Neut % (Auto) 52.1 (34.0-71.1) % Lymph % (Auto) 32.0 (19.3-51.7) % [place] % (Auto) 10.6 (4.7-12.5) % Eos % (Auto) 4.3 (0.7-5.8) Baso % (Auto) 1.0 (0.1-1.2) % Neut # (Auto) 2.07 (1.56-6.13) K/mm3 Lymph # (Auto) 1.27 (1.18-3.74) K/mm3 [place]dwell # (Auto) 0.42 H (0.24-0.36) K/mm3 Eos # (Auto) 0.17 (0.04-0.36) K/mm3 Baso # (Auto) 0.04 (0.01-0.08) K/mm3 PT (9.5-12.1) SECONDS INR Sodium 141 (136-145) mEq/L Potassium 4.8 (3.5-5.1) mEq/L Chloride 106 (98-107) mEq/L Carbon Dioxide 32 (21-32) mEq/L Anion Gap 7.8 (5-15) BUN 17 (7-18) mg/dL Creatinine 1.1 H (0.55-1.02) mg/dL Est Cr Clr Drug Dosing 27.42 mL/min Estimated GFR (MDRD) 47 (>60) mL/min BUN/Creatinine Ratio 15.5 (14-18) Glucose 102 (83-115) mg/dL Calcium 8.7 (8.5-10.1) mg/dL Magnesium 2.1 (1.8-2.4) mg/dl Urine Color Yellow (Yellow) Urine Appearance Clear (Clear) Urine pH 6.0 (5.0-8.0) Ur Specific [place] 1.025 (1.005-1.030) Urine Protein Negative (Negative) Urine Glucose (UA) Negative (Negative) Urine Ketones Negative (Negative) Urine Occult Blood Trace-lysed H (Negative) Urine Nitrite Negative (Negative) Urine Bilirubin Negative (Negative) Urine Urobilinogen 0.2 (0.2-1.0) Ur Leukocyte Esterase Negative (Negative) Urine RBC 0-5 (0-5) /hpf Urine WBC 0-5 (0-5) /hpf Ur Epithelial Cells 0-5 (0-5) /hpf Urine Bacteria Few (FEW) /hpf Urine Mucus Few (FEW) /hpf 09/25/18 Range/Units 13:10 WBC (3.98-10.04) K/mm3 RBC (3.98-5.22) M/mm3 Hgb (11.2-15.7) gm/L Hct (34.1-44.9) % MCV (79.4-94.8) fl MCH (25.6-32.2) pg MCHC (32.2-35.5) g/dl RDW Std Deviation (36.4-46.3) fL Plt Count (182-369) K/mm3 MPV (9.4-12.3) fl Neut % (Auto) (34.0-71.1) % Lymph % (Auto) (19.3-51.7) % [place]dwell % (Auto) (4.7-12.5) % Eos % (Auto) (0.7-5.8) Baso % (Auto) (0.1-1.2) % Neut # (Auto) (1.56-6.13) K/mm3 Lymph # (Auto) (1.18-3.74) K/mm3 [place] # (Auto) (0.24-0.36) K/mm3 Eos # (Auto) (0.04-0.36) K/mm3 Baso # (Auto) (0.01-0.08) K/mm3 PT 29.2 H (9.5-12.1) SECONDS INR 2.73 Sodium (136-145) mEq/L Potassium (3.5-5.1) mEq/L Chloride (98-107) mEq/L Carbon Dioxide (21-32) mEq/L Anion Gap (5-15) BUN (7-18) mg/dL Creatinine (0.55-1.02) mg/dL Est Cr Clr Drug Dosing mL/min Estimated GFR (MDRD) (>60) mL/min BUN/Creatinine Ratio (14-18) Glucose (83-115) mg/dL Calcium (8.5-10.1) mg/dL Magnesium (1.8-2.4) mg/dl Urine Color (Yellow) Urine Appearance (Clear) Urine pH (5.0-8.0) Ur Specific [place] (1.005-1.030) Urine Protein (Negative) Urine Glucose (UA) (Negative) Urine Ketones (Negative) Urine Occult Blood (Negative) Urine Nitrite (Negative) Urine Bilirubin (Negative) Urine Urobilinogen (0.2-1.0) Ur Leukocyte Esterase (Negative) Urine RBC (0-5) /hpf Urine WBC (0-5) /hpf Ur Epithelial Cells (0-5) /hpf Urine Bacteria (FEW) /hpf Urine Mucus (FEW) /hpf Med Orders - Current: Current Medications Acetaminophen (Tylenol) 325 mg PO Q4H PRN PRN Reason: PAIN Last Admin: 09/25/18 10:42 Dose: 325 mg Acetaminophen/Codeine Phosphate (Tylenol With Codeine No.3 300mg/30mg) 30 - 300 tab PO Q6H PRN PRN Reason: Pain Albuterol (Proventil Hfa) 0 gm INH Q6H PRN PRN Reason: Shortness of Breath Bisacodyl (Dulcolax) 5 mg PO DAILY PRN PRN Reason: Constipation Cholecalciferol (Vitamin D3) 5,000 unit PO DAILY NAVID Last Admin: 09/25/18 09:10 Dose: 5,000 unit Diltiazem HCl (Cardizem Cd) 180 mg PO DAILY [facility] Diphenhydramine HCl (Benadryl) 25 mg PO Q4H PRN PRN Reason: ALLERGIES Docusate Sodium (Colace) 100 mg PO BID PRN PRN Reason: Constipation Ferrous Sulfate (Ferrous Sulfate) 325 mg PO MoWeFr@0900 NAVID Lorazepam (Ativan) 0.5 mg PO BID PRN PRN Reason: Anxiety Magnesium Hydroxide (Milk Of Magnesia) 30 ml PO Q12H PRN PRN Reason: Constipation Metoprolol Tartrate (Lopressor) 0 mg PO BID [facility] (Budesonide/Fsskswwiic99/4.5 2 Puff)*Pt Own Med* 2 puff INH BID [facility] Last Admin: 09/25/18 10:02 Dose: 2 puff Guaifenesin 400mg (*Own Med) 1 each PO Q12HR [facility] Last Admin: 09/25/18 09:10 Dose: 1 each Paroxetine HCl (Paxil) 0 mg PO DAILY [facility] Paroxetine HCl (Paxil) 20 mg PO DAILY [facility] Levalbuterol Hcl [ (Xopenex] Inhaler) 0 each INH Q6H PRN PRN Reason: Shortness of Breath Omeprazole 20 Mg Cap (Ptom) 0 each PO BIDAC [facility] Last Admin: 09/25/18 09:25 Dose: 1 each Polyethylene Glycol (Miralax) 17 gm PO DAILY PRN PRN Reason: Constipation Potassium Chloride (Klor-Con 10) 10 meq PO DAILY [facility] Pyridoxine HCl (Vitamin B6-Pyridoxine) 25 mg PO DAILY [facility] Last Admin: 09/25/18 09:10 Dose: 25 mg Senna/Docusate Sodium (Senna Plus) 1 tab PO BID PRN PRN Reason: Constipation Discontinued Medications (Albuterol Mdi Puff) *Pt Own Med* 2 puff INH Q6H PRN PRN Reason: Shortness of Breath Last Admin: 09/25/18 10:02 Dose: 2 puff Non-Formulary Medication (Alpha Lipoic Acid [Alpha Lipoic Acid]) 600 mg PO DAILY PRN PRN Reason: neuropathy Non-Formulary Medication (Cyanocobalamin (Vitamin B-12) [Cyanocobalamin Injection]) 5,000 mcg IM WEEKLY [facility] Non-Formulary Medication (Docusate Sodium [Docusate Sodium]) 100 mg PO BID PRN PRN Reason: Constipation Non-Formulary Medication (Guaifenesin/Pseudoephedrne Hcl) 1 tab PO Q12H [facility] Last Admin: 09/24/18 21:58 Dose: Not Given (Lorazepam [ Lorazepam] 0.5 Mg)* Pt Own Med* 0.5 mg PO BID PRN PRN Reason: Anxiety Last Admin: 09/24/18 22:03 Dose: 0.5 mg (Metoprolol Tartrate [Metoprolol Tartrate] 25 Mg)*Pt Own Med* 0 mg PO BID [facility] Last Admin: 09/25/18 09:11 Dose: 12.5 mg Non-Formulary Medication (Thiamine Hcl [Vitamin B-1]) 50 mg PO ASDIRECTED [facility] Non-Formulary Medication (Warfarin [Coumadin]) 5 mg PO [facility] Non-Formulary Medication (Warfarin [Coumadin]) 7.5 mg PO [facility] Last Admin: 09/24/18 21:28 Dose: Not Given Diltiazem 24hr Cd (180 Mg Ptom) 0 each PO DAILY [facility] Last Admin: 09/25/18 09:26 Dose: 1 each Paroxetine 20 Mg Tab (Ptom) 0 each PO DAILY [facility] Last Admin: 09/25/18 09:28 Dose: 1 each Paroxetine 10 Mg Tab (Ptom) 0 each PO DAILY [facility] Last Admin: 09/25/18 09:28 Dose: 0.5 each - Exam Quality Assessment: DVT Prophylaxis General: Alert, No Acute Distress HEENT: Pupils Equal, Pupils Reactive, EOMI, Mucous Membr. Moist/[place] Neck: Supple Lungs: Clear to Auscultation, Normal Respiratory Effort Cardiovascular: Regular Rate, Regular Rhythm GI/Abdominal Exam: Normal Bowel Sounds, Soft, Non-Tender, No Organomegaly, No Distention, No Abnormal Bruit, No Mass, Pelvis Stable (Female) Exam: Deferred Back Exam: Normal Inspection Extremities: Normal Inspection, Non-Tender, No Pedal Edema, Normal Capillary Refill, Leg Pain (s/p R Hip fx), Limited Range of Motion (s/p R hip fx) Peripheral Pulses: 2+: Posterior Tibial (L), Posterior Tibial (R), Dorsalis Pedis (L), Dorsalis Pedis (R) Skin: Warm, Dry, Intact Neurological: No New Focal Deficit Psy/Mental Status: Alert - Problem List & Annotations (1) Pain of right lower extremity SNOMED Code(s): 235436784 Code(s): M79.604 - PAIN IN RIGHT LEG Status: Acute Priority: Medium Current Visit: Yes (2) Self-care deficit in patient living alone SNOMED Code(s): 62066602 Code(s): R46.89 - OTHER SYMPTOMS AND SIGNS INVOLVING APPEARANCE AND BEHAVIOR Status: Acute Priority: High Current Visit: Yes (3) Supratherapeutic INR SNOMED Code(s): 011547411 Code(s): R79.1 - ABNORMAL COAGULATION PROFILE Status: Acute Priority: High Current Visit: Yes (4) Subcapital fracture of femur SNOMED Code(s): 552526063 Code(s): S72.019A - UNSP INTRACAPSULAR FRACTURE OF UNSP FEMUR, INIT FOR CLOS FX Status: Acute Priority: High Current Visit: Yes Qualifiers: Encounter type: sequela Fracture type: closed Laterality: right Qualified Code(s): S72.011S - Unspecified intracapsular fracture of right femur , sequela - Problem List Review Problem List Initiated/Reviewed/Updated: Yes - My Orders Last 24 Hours: My Active Orders 09/24/18 16:00 Patient's Own Medication [Ptom] 0 each PO BIDAC 09/24/18 19:52 Acetaminophen/Codeine [Tylenol with Codeine No.3 300MG/30MG] 30 - 300 tab PO Q6H PRN Patient's Own Medication [Ptom] 0 each INH Q6H PRN 09/24/18 19:55 May Shower [RC] ASDIRECTED Oxygen Therapy [RC] PRN Up With Assistance [RC] ASDIRECTED VTE/DVT Education [RC] DAILY Vital Signs [RC] QSHIFT OT Evaluation and Treatment [CONS] Routine PT Evaluation and Treatment [CONS] Routine Bisacodyl [Dulcolax] 5 mg PO DAILY PRN Docusate Sodium [Colace] 100 mg PO BID PRN Docusate Sodium/Sennosides [Senna Plus] 1 tab PO BID PRN Magnesium Hydroxide [Milk of Magnesia] 30 ml PO Q12H PRN Polyethylene Glycol 3350 [MiraLAX] 17 gm PO DAILY PRN Resuscitation Status Routine 09/24/18 19:56 Antiembolic Hose [OM.PC] Per Unit Routine 09/24/18 20:09 Acetaminophen [Tylenol] 325 mg PO Q4H PRN 09/24/18 20:11 diphenhydrAMINE [Benadryl] 25 mg PO Q4H PRN 09/24/18 21:00 Budesonide/Formoterol 2 puff INH BID 09/24/18 21:50 Non-Formulary Medication [NF Drug] 1 each PO Q12HR 09/25/18 09:00 Cholecalciferol (Vitamin D3) [Vitamin D3] 5,000 unit PO DAILY Vitamin B6-pyridOXINE 25 mg PO DAILY 09/25/18 10:04 LORazepam [Ativan] 0.5 mg PO BID PRN 09/25/18 10:05 Metoprolol Tartrate [Lopressor] 0 mg PO BID 09/25/18 10:09 PARoxetine [Paxil] 0 mg PO DAILY 09/25/18 10:15 Albuterol [Proventil HFA] 0 gm INH Q6H PRN 09/25/18 14:41 Consult to Physician [CONS] Routine 09/25/18 14:46 Notify Provider Consults [RC] ASDIRECTED 09/26/18 09:00 Diltiazem [Cardizem CD] 180 mg PO DAILY Ferrous Sulfate 325 mg PO MoWeFr@0900 PARoxetine [Paxil] 20 mg PO DAILY Potassium Chloride [Klor-Con 10] 10 meq PO DAILY - Plan Plan:: I/P: Acute: Assisted Living Placement * Pt's daughters don't feel they can't manage their mother at home * She has had recent fall/R hip fracture * Evaluated in ED for fall on 09/22/18--> CT showed only scalp hematoma * Uses a walker * Daughters suspect new-onset dementia * PT/OT * CM/SW consult for placement Right Hip fx * 09/12/18 had difficulty getting out of car and has had pain since * 08/24/18 Seen in walk-in clinic--> Xray negative; Tylenol 3 prescribed * CT hip 09/25/18--> Slightly impacted subcapital fracture within the right hip * Pain management PRN * PT/OT * Consult orthopedic Dr. Hand Resolved: Supratherapeutic INR * INR 4.25-->2.73 * Hold Warfarin for now--> RESUME HOME DOSE * Monitor * F/U with PCP Chronic: Paroxysmal Afib DVT/VTE HLD GERD Hiatal Hernia CKD Urinary Incontinence Depression Anxiety Obesity Basal Cell Carcinoma of forehead h/o Cdiff Plan: Transferred to Medical Floor for Observation Other orders as indicated above Routine AM labs Clear liquid, then Heart Healthy Diet in AM PT/OT CM/SW DVT Prophylaxis/GI Prophylaxis Code Status: DNR/DNI; PCP: Dr. Parrish
[2018-09-25] MEDS ORDERED: guaiFENesin/Dextromethorphan 100-10 MG/5 ML Soln 5 ML Cup PO PRN (15:09)
[2018-09-25] MEDS: Acetaminophen/Codeine 300-30 MG Tab PO PRN (15:32)
[2018-09-25] MEDS ORDERED: Warfarin 5 MG Tab PO ONE (18:00)
[2018-09-25] MEDS: Calcium Carbonate/Vitamin D3 600 MG-200 Units Tab PO SCH (18:41)
[2018-09-25] MEDS ORDERED: Non-Formulary Medication 1 Each (Warfarin [Coumadin] 5 MG) PO SCH (19:52)
[2018-09-25] MEDS: ALBUTEROL INH PRN (20:17)
[2018-09-26] MEDS: Acetaminophen 325 MG Tab PO PRN ×4 (05:27→21:49)
[2018-09-26] MEDS: OMEPRAZOLE 20 MG PO SCH (05:27)
[2018-09-26] MEDS: Calcium Carbonate/Vitamin D3 600 MG-200 Units Tab PO SCH ×5 (05:27→17:29)
--- NOTE | 2018-09-26 08:14 | CONS ---
CONSULTING PHYSICIAN: Ming Hand MD DATE OF CONSULTATION: 09/25/2018 HISTORY OF PRESENT ILLNESS: The orthopedic consultation was called for evaluation of this patient in the hospital. The patient was admitted on 09/12/2018 and then re-admitted to the hospital over the weekend on 09/22. The patient was seen for significant right hip pain that had been increasing over the course of time. The patient notes no hard injury to the hip area, and this started on 09/12/2018. She presented to the outpatient walk-in clinic, had x-rays taken, found to be stable, was placed on some medication, and then over the course of the next 2 weeks, the patient developed gradual increasing pain about the hip area causing some limitation. The patient after admitting to the hospital has been placed at bedrest, and she is now several days since the admission. She notes that the hip pain is stable and has a pain scale of roughly approximately 1 to 3 with any type of activity or movement. She had been weightbearing on the hip prior to admission on 09/22. The medical staff performed x-rays, CT scan, was found to have a nondisplaced fracture subcapital of the right hip with osteoporosis changes. The orthopedic consultation was then called for. Medically, the patient has a significant medical history. She currently is on Coumadin for atrial fibrillation. She therefore was quite concerned about the possibility that she may need surgery. PAST MEDICAL HISTORY ALLERGIES: The patient has a history of allergy to iodine dye, oxycodone allergy, and Talwin allergy. MEDICATIONS AT TIME OF ADMISSION: Iron supplements, Coumadin, warfarin. She has also been on lorazepam, Prilosec, potassium supplements, multiple vitamins, Tylenol No. 3, Proventil, Symbicort, and Mucinex in the past. Also, the patient is noted not to have any calcium supplements for her. MEDICAL PROBLEMS: The patient's medical problems include some impaired vision. She has atrial fibrillation, also blood clot history. She has had a history of high cholesterol, asthma, seasonal allergies, hiatal hernia, renal insufficiency. The patient also had a fractured right ankle in the past, and she notes a history of osteoporosis and depression. SURGICAL HISTORY: The patient has had a basal cell carcinoma removed. The patient also has a history of cataract surgery. Reports valve replacement, appendectomy, and open reduction and internal fixation of an ankle fracture. SOCIAL HISTORY: The patient is a nonsmoker. She is also a nondrinker at this time. PHYSICAL EXAMINATION: GENERAL: Reveals a well-developed, well-nourished 74-year-old female, in moderate distress. HEAD, EYES, EARS, NOSE, AND THROAT: Normocephalic. NECK: Supple. CHEST: Clear. HEART: Irregular rhythm at times. ABDOMEN: Soft and nontender. MUSCULOSKELETAL: Examination of the right hip and pelvis produced pelvis stress is negative for increased pain. Right hip examination shows the right hip and leg to be in normal position. No external rotation noted. With internal and external rotation stresses of the right hip, no pain developed from the patient. The pulses showed posterior tibial pulses noted. RADIOLOGY EVALUATION: CT scan was evaluated of the right hip, which was performed on 09/22 showing positive fracture through the subcapital region of the right hip. There is a fracture with minimal to no displacement noted. Good position of the hip fracture is seen. There is no callus formation around the area and osteoporosis is noted. IMPRESSION: 1. Subcapital fracture of the right hip. 2. Osteoporosis. PLAN: I discussed with the patient the possibility of surgical intervention. She notes that she did not want any surgery at this time, noting that she has been 2 weeks with the hip pain, and we discussed that the x-ray had not shown any significant problems with the fracture movement and after agreement with the patient has opted that she will work through a physical therapy program for gait and ambulation, nonweightbearing on the right side. It was thoroughly discussed for the surgery part that on followup of x-rays, I find that the subcapital fracture would be displacing that she will need surgery. She notes that and she agrees that she would rather proceed with the conservative treatment nonsurgical at this time, and then if that development would occur with the change in the position of the fracture, she would then like to have surgery performed. This was discussed. She understands this situation thoroughly, and we will go along and follow her for the hip fracture. MAGDALENO /[id number]
[2018-09-26] MEDS ORDERED: POTASSIUM CHLORIDE 10 MEQ PO SCH (09:00)
[2018-09-26] MEDS ORDERED: PAROXETINE 20 MG PO SCH (09:00)
[2018-09-26] MEDS ORDERED: DILTIAZEM PO SCH (09:00)
[2018-09-26] MEDS ORDERED: [UNRECOGNIZED DRUG - OTHER] PO SCH (09:00)
[2018-09-26] MEDS: FORMOTEROL INH SCH ×2 (09:26→20:16)
[2018-09-26] MEDS: BUDESONIDE INH SCH ×2 (09:26→20:16)
[2018-09-26] MEDS: ALBUTEROL INH PRN ×2 (09:28→20:17)
[2018-09-26] MEDS: [UNRECOGNIZED DRUG - OTHER] PO SCH (09:36)
[2018-09-26] MEDS: Ferrous Sulfate 325 MG Tab PO SCH (09:36)
[2018-09-26] MEDS: DILTIAZEM PO SCH (09:36)
[2018-09-26] MEDS: Vitamin B6-pyridOXINE 50 MG Tab PO SCH (09:37)
[2018-09-26] MEDS: Potassium Chloride 10 MEQ TAB PO SCH (09:37)
[2018-09-26] MEDS: Cholecalciferol (Vitamin D3) 5,000 UNIT Tab PO SCH (09:37)
[2018-09-26] MEDS: METOPROLOL TARTRATE 25 MG PO SCH ×2 (09:38→21:50)
[2018-09-26] MEDS: GUAIFENESIN 400 MG PO SCH ×2 (09:40→21:50)
[2018-09-26] MEDS: PAROXETINE 10 MG PO SCH (09:41)
[2018-09-26] MEDS: PAROXETINE 20 MG PO SCH (09:41)
--- NOTE | 2018-09-26 16:52 | PCM.PN ---
- General Info Date of Service: 09/26/18 Admission Dx/Problem (Free Text): Admission Diagnosis/Problem Admission Diagnosis/Problem INR (international normal ratio) abnormal Subjective Update: In to see Amparo. She is laying comfortably in bed. She currently has no complaints. I have printed out an example of the right hip fracture as she has been asking where the fracture is and explained it to her. She stated she understood and appreciated the picture. We discussed her options again, as she is curious about surgery, but then she states "I think I can handle not putting weight on it instead of having surgery". She is aware of the plan to go to be D/ C'd to either [facility] or [facility] on Saturday. RIPSAWYER cognitive evaluation was ordered as she seems to have some confusion during discussions, as she seems to take a long time to process information. She asks the same questions multiple times and does not seem to process answers until it has been repeated a few times. However, RIPSAWYER states she passed her cognitive evaluation today. Functional Status: Reports: Pain Controlled, Tolerating Diet, Ambulating, Urinating - Review of Systems General: Reports: No Symptoms. Denies: Fever, Chills HEENT: Reports: No Symptoms Pulmonary: Reports: No Symptoms. Denies: Shortness of Breath, Cough Cardiovascular: Reports: No Symptoms. Denies: Chest Pain Gastrointestinal: Reports: No Symptoms. Denies: Diarrhea, Nausea, Vomiting Genitourinary: Reports: No Symptoms Musculoskeletal: Reports: Leg Pain (s/p r hip fx) Skin: Reports: No Symptoms Neurological: Reports: Confusion, Difficulty Walking, Gait Disturbance. Denies : Numbness, Weakness Psychiatric: Reports: Confusion - Patient Data Vitals - Most Recent: Last Vital Signs Temp 97.5 F 09/26/18 08:41 Pulse 76 09/26/18 09:38 Resp 20 09/26/18 08:41 BP 131/75 09/26/18 09:38 Pulse Ox 93 L 09/26/18 09:31 Weight - Most Recent: 200 lb 5 oz I&O - Last 24 Hours: Intake & Output 09/26/18 09/26/18 09/26/18 06:59 14:59 22:59 Intake Total 200 360 Output Total 700 Balance -500 360 Lab Results Last 24 Hours: Laboratory Results - last 24 hr 09/26/18 09/26/18 09/26/18 Range/Units 06:15 06:15 06:15 WBC 3.95 L (3.98-10.04) K/mm3 RBC 3.63 L (3.98-5.22) M/mm3 Hgb 11.4 (11.2-15.7) gm/L Hct 36.5 (34.1-44.9) % MCV 100.6 H (79.4-94.8) fl MCH 31.4 (25.6-32.2) pg MCHC 31.2 L (32.2-35.5) g/dl RDW Std Deviation 46.2 (36.4-46.3) fL Plt Count 197 (182-369) K/mm3 MPV 10.6 (9.4-12.3) fl Neut % (Auto) 57.2 (34.0-71.1) % Lymph % (Auto) 27.3 (19.3-51.7) % [place] % (Auto) 10.6 (4.7-12.5) % Eos % (Auto) 4.1 (0.7-5.8) Baso % (Auto) 0.5 (0.1-1.2) % Neut # (Auto) 2.26 (1.56-6.13) K/mm3 Lymph # (Auto) 1.08 L (1.18-3.74) K/mm3 [place] # (Auto) 0.42 H (0.24-0.36) K/mm3 Eos # (Auto) 0.16 (0.04-0.36) K/mm3 Baso # (Auto) 0.02 (0.01-0.08) K/mm3 PT 22.6 H (9.5-12.1) SECONDS INR 2.10 Sodium 140 (136-145) mEq/L Potassium 4.3 (3.5-5.1) mEq/L Chloride 103 (98-107) mEq/L Carbon Dioxide 29 (21-32) mEq/L Anion Gap 12.3 (5-15) BUN 23 H (7-18) mg/dL Creatinine 1.0 (0.55-1.02) mg/dL Est Cr Clr Drug Dosing 29.90 mL/min Estimated GFR (MDRD) 52 (>60) mL/min BUN/Creatinine Ratio 23.0 H (14-18) Glucose 116 H (83-115) mg/dL Calcium 8.7 (8.5-10.1) mg/dL Med Orders - Current: Current Medications Acetaminophen (Tylenol) 325 mg PO Q4H PRN PRN Reason: PAIN Last Admin: 09/26/18 09:54 Dose: 325 mg Acetaminophen/Codeine Phosphate (Tylenol With Codeine No.3 300mg/30mg) 30 - 300 tab PO Q6H PRN PRN Reason: Pain Last Admin: 09/25/18 15:32 Dose: 1 tab Albuterol (Proventil Hfa) 0 gm INH Q6H PRN PRN Reason: Shortness of Breath Last Admin: 09/26/18 09:28 Dose: 2 puff Bisacodyl (Dulcolax) 5 mg PO DAILY PRN PRN Reason: Constipation Calcium Carbonate (Calcium Carbonate/Vitamin D 600 Mg-200 Unit) 1 tab PO TIDMEALS [facility] Last Admin: 09/26/18 11:07 Dose: Not Given Cholecalciferol (Vitamin D3) 5,000 unit PO DAILY [facility] Last Admin: 09/26/18 09:37 Dose: 5,000 unit Diltiazem HCl (Cardizem Cd) 180 mg PO DAILY [facility] Last Admin: 09/26/18 09:36 Dose: 180 mg Diphenhydramine HCl (Benadryl) 25 mg PO Q4H PRN PRN Reason: ALLERGIES Docusate Sodium (Colace) 100 mg PO BID PRN PRN Reason: Constipation Ferrous Sulfate (Ferrous Sulfate) 325 mg PO MoWeFr@0900 [facility] Last Admin: 09/26/18 09:36 Dose: 325 mg Guaifenesin/Phenylephrine HCl (Robitussin Dm) 10 ml PO QID PRN PRN Reason: Cough Last Admin: 09/25/18 15:34 Dose: 10 ml Lorazepam (Ativan) 0.5 mg PO BID PRN PRN Reason: Anxiety Last Admin: 09/26/18 09:53 Dose: 0.5 mg Magnesium Hydroxide (Milk Of Magnesia) 30 ml PO Q12H PRN PRN Reason: Constipation Metoprolol Tartrate (Lopressor) 0 mg PO BID [facility] Last Admin: 09/26/18 09:38 Dose: 12.5 mg (Budesonide/Ipanvuplrx37/4.5 2 Puff)*Pt Own Med* 2 puff INH BID [facility] Last Admin: 09/26/18 09:26 Dose: 2 puff Guaifenesin 400mg (*Own Med) 1 each PO Q12HR [facility] Last Admin: 09/26/18 09:40 Dose: 1 each Pantoprazole Sodium (Protonix) 40 mg PO BIDAC [facility] Paroxetine HCl (Paxil) 0 mg PO DAILY [facility] Last Admin: 09/26/18 09:41 Dose: 5 mg Paroxetine HCl (Paxil) 20 mg PO DAILY [facility] Last Admin: 09/26/18 09:41 Dose: 20 mg Levalbuterol Hcl [ (Xopenex] Inhaler) 0 each INH Q6H PRN PRN Reason: Shortness of Breath Polyethylene Glycol (Miralax) 17 gm PO DAILY PRN PRN Reason: Constipation Potassium Chloride (Klor-Con 10) 10 meq PO DAILY [facility] Last Admin: 09/26/18 09:37 Dose: 10 meq Pyridoxine HCl (Vitamin B6-Pyridoxine) 25 mg PO DAILY [facility] Last Admin: 09/26/18 09:37 Dose: 25 mg Senna/Docusate Sodium (Senna Plus) 1 tab PO BID PRN PRN Reason: Constipation Warfarin Sodium (Pharmacy To Dose - Warfarin) 0 dose .XX ASDIRECTED PRN PRN Reason: RX TO DOSE WARFARIN Warfarin Sodium (Coumadin) 5 mg PO QPM [facility] Stop: 09/26/18 21:00 Discontinued Medications Diltiazem HCl (Cardizem Cd) 180 mg PO DAILY [facility] Lorazepam (Ativan) 0.5 mg PO BID PRN PRN Reason: Anxiety Last Admin: 09/25/18 20:47 Dose: 0.5 mg (Albuterol Mdi Puff) *Pt Own Med* 2 puff INH Q6H PRN PRN Reason: Shortness of Breath Last Admin: 09/25/18 10:02 Dose: 2 puff Non-Formulary Medication (Alpha Lipoic Acid [Alpha Lipoic Acid]) 600 mg PO DAILY PRN PRN Reason: neuropathy Non-Formulary Medication (Cyanocobalamin (Vitamin B-12) [Cyanocobalamin Injection]) 5,000 mcg IM WEEKLY [facility] Non-Formulary Medication (Docusate Sodium [Docusate Sodium]) 100 mg PO BID PRN PRN Reason: Constipation Non-Formulary Medication (Guaifenesin/Pseudoephedrne Hcl) 1 tab PO Q12H [facility] Last Admin: 09/24/18 21:58 Dose: Not Given (Lorazepam [ Lorazepam] 0.5 Mg)* Pt Own Med* 0.5 mg PO BID PRN PRN Reason: Anxiety Last Admin: 09/24/18 22:03 Dose: 0.5 mg (Metoprolol Tartrate [Metoprolol Tartrate] 25 Mg)*Pt Own Med* 0 mg PO BID [facility] Last Admin: 09/25/18 09:11 Dose: 12.5 mg Non-Formulary Medication (Thiamine Hcl [Vitamin B-1]) 50 mg PO ASDIRECTED [facility] Non-Formulary Medication (Warfarin [Coumadin]) 5 mg PO [place] [facility] Non-Formulary Medication (Warfarin [Coumadin]) 7.5 mg PO MOWEFRSA [facility] Last Admin: 09/24/18 21:28 Dose: Not Given Paroxetine HCl (Paxil) 20 mg PO DAILY [facility] Diltiazem 24hr Cd (180 Mg Ptom) 0 each PO DAILY [facility] Last Admin: 09/25/18 09:26 Dose: 1 each Omeprazole 20 Mg Cap (Ptom) 0 each PO BIDAC [facility] Last Admin: 09/26/18 05:27 Dose: 1 each Paroxetine 20 Mg Tab (Ptom) 0 each PO DAILY [facility] Last Admin: 09/25/18 09:28 Dose: 1 each Paroxetine 10 Mg Tab (Ptom) 0 each PO DAILY [facility] Last Admin: 09/25/18 09:28 Dose: 0.5 each Potassium Chloride (Klor-Con 10) 10 meq PO DAILY [facility] Warfarin Sodium (Pharmacy To Dose - Warfarin) 1 dose .XX ASDIRECTED [facility] Warfarin Sodium (Coumadin) 5 mg PO ONETIME ONE Stop: 09/25/18 18:01 Last Admin: 09/25/18 18:41 Dose: 5 mg - Exam Quality Assessment: DVT Prophylaxis General: Alert, Cooperative, No Acute Distress HEENT: Pupils Equal, Pupils Reactive, EOMI, Mucous Membr. Moist/[place] Neck: Supple Lungs: Clear to Auscultation, Normal Respiratory Effort Cardiovascular: Regular Rate, Regular Rhythm GI/Abdominal Exam: Normal Bowel Sounds, Soft, Non-Tender, No Organomegaly, No Distention, No Abnormal Bruit, No Mass, Pelvis Stable (Female) Exam: Deferred Back Exam: Normal Inspection Extremities: Normal Inspection, Non-Tender, No Pedal Edema, Normal Capillary Refill, Leg Pain (s/p r hip fx), Limited Range of Motion (s/p r hip fx) Peripheral Pulses: 2+: Posterior Tibial (L), Posterior Tibial (R), Dorsalis Pedis (L), Dorsalis Pedis (R) Skin: Warm, Dry, Intact Neurological: No New Focal Deficit Psy/Mental Status: Alert - Problem List & Annotations (1) Pain of right lower extremity SNOMED Code(s): 398417697 Code(s): M79.604 - PAIN IN RIGHT LEG Status: Acute Priority: Medium Current Visit: Yes (2) Self-care deficit in patient living alone SNOMED Code(s): 91057368 Code(s): R46.89 - OTHER SYMPTOMS AND SIGNS INVOLVING APPEARANCE AND BEHAVIOR Status: Acute Priority: High Current Visit: Yes (3) Supratherapeutic INR SNOMED Code(s): 422991130 Code(s): R79.1 - ABNORMAL COAGULATION PROFILE Status: Acute Priority: High Current Visit: Yes (4) Subcapital fracture of femur SNOMED Code(s): 580030922 Code(s): S72.019A - UNSP INTRACAPSULAR FRACTURE OF UNSP FEMUR, INIT FOR CLOS FX Status: Acute Priority: High Current Visit: Yes Qualifiers: Encounter type: sequela Fracture type: closed Laterality: right Qualified Code(s): S72.011S - Unspecified intracapsular fracture of right femur , sequela - Problem List Review Problem List Initiated/Reviewed/Updated: Yes - My Orders Last 24 Hours: My Active Orders 09/25/18 16:27 PT Evaluation and Treatment [CONS] Routine 09/25/18 16:46 Patient Status [ADT] Routine 09/25/18 17:00 Calcium Carbonate/Vitamin D3 [Calcium Carbonate/Vitamin D 600 MG-200 Unit] 1 tab PO TIDMEALS Pharmacy to Dose - Warfarin 0 dose .XX ASDIRECTED PRN 09/26/18 07:48 LORazepam [Ativan] 0.5 mg PO BID PRN 09/26/18 09:00 Diltiazem [Cardizem CD] 180 mg PO DAILY Ferrous Sulfate 325 mg PO MoWeFr@0900 PARoxetine [Paxil] 20 mg PO DAILY Potassium Chloride [Klor-Con 10] 10 meq PO DAILY 09/26/18 15:49 RIPSAWYER Evaluation and Treatment [CONS] Routine 09/26/18 16:00 Pantoprazole [ProTONIX] 40 mg PO BIDAC 09/26/18 18:00 Warfarin [Coumadin] 5 mg PO QPM 09/27/18 05:11 BASIC METABOLIC PANEL,BMP [CHEM] AM CBC WITH AUTO DIFF [HEME] AM INR,PT,PROTHROMBIN TIME [COAG] AM 09/28/18 05:11 BASIC METABOLIC PANEL,BMP [CHEM] AM CBC WITH AUTO DIFF [HEME] AM INR,PT,PROTHROMBIN TIME [COAG] AM 09/28/18 08:00 Hip Min 2V or 3V Rt [CR] Routine - Plan Plan:: I/P: Acute: Assisted Living Placement * Pt's daughters don't feel they can't manage their mother at home * She has had recent fall/R hip fracture * Evaluated in ED for fall on 09/22/18--> CT showed only scalp hematoma * Uses a walker * Daughters suspect new-onset dementia * RIPSAWYER cog eval pending * PT/OT * CM/SW consult for placement Right Hip fx * 09/12/18 had difficulty getting out of car and has had pain since * 08/24/18 Seen in walk-in clinic--> Xray negative; Tylenol 3 prescribed * CT hip 09/25/18--> Slightly impacted subcapital fracture within the right hip * Pain management PRN * PT/OT * Consult orthopedic Dr. Hand Resolved: Supratherapeutic INR * INR 4.25-->2.73 * Hold Warfarin for now--> RESUME HOME DOSE * Monitor * F/U with PCP Chronic: Paroxysmal Afib DVT/VTE HLD GERD Hiatal Hernia CKD Urinary Incontinence Depression Anxiety Obesity Basal Cell Carcinoma of forehead h/o Cdiff Plan: Transferred to Medical Floor for Observation Other orders as indicated above Routine AM labs Clear liquid, then Heart Healthy Diet in AM PT/OT CM/SW DVT Prophylaxis/GI Prophylaxis Code Status: DNR/DNI; PCP: Dr. Parrish
[2018-09-26] MEDS: Pantoprazole 40 MG Tab.CR PO SCH (17:29)
[2018-09-26] MEDS ORDERED: Warfarin 5 MG Tab PO SCH (18:00)
[2018-09-26] MEDS: Acetaminophen/Codeine 300-30 MG Tab PO PRN (23:41)
[2018-09-27] MEDS: Pantoprazole 40 MG Tab.CR PO SCH ×2 (05:55→16:04)
[2018-09-27] MEDS: Calcium Carbonate/Vitamin D3 600 MG-200 Units Tab PO SCH ×3 (06:37→17:38)
[2018-09-27] MEDS: FORMOTEROL INH SCH ×2 (08:16→20:17)
[2018-09-27] MEDS: BUDESONIDE INH SCH ×2 (08:16→20:17)
[2018-09-27] MEDS: ALBUTEROL INH PRN (08:16)
[2018-09-27] MEDS: Vitamin B6-pyridOXINE 50 MG Tab PO SCH (08:56)
[2018-09-27] MEDS: [UNRECOGNIZED DRUG - OTHER] PO SCH (08:57)
[2018-09-27] MEDS: DILTIAZEM PO SCH (08:57)
[2018-09-27] MEDS: Acetaminophen/Codeine 300-30 MG Tab PO PRN ×3 (08:57→22:59)
[2018-09-27] MEDS: METOPROLOL TARTRATE 25 MG PO SCH (09:00)
[2018-09-27] MEDS: PAROXETINE 20 MG PO SCH (09:01)
[2018-09-27] MEDS: PAROXETINE 10 MG PO SCH (09:01)
[2018-09-27] MEDS: Cholecalciferol (Vitamin D3) 5,000 UNIT Tab PO SCH (09:01)
[2018-09-27] MEDS: Potassium Chloride 10 MEQ TAB PO SCH (09:02)
[2018-09-27] MEDS: GUAIFENESIN 400 MG PO SCH ×2 (10:28→21:16)
--- NOTE | 2018-09-27 12:21 | CR ---
Chest: 2 views of the chest were obtained. Comparison: Prior chest x-ray of 09/24/[address] of 07/27/14. Heart is enlarged. Large hiatal hernia is noted. Tortuous thoracic aorta is seen. Atelectasis is noted within the left base. Lungs otherwise are clear. Bony structures are osteopenic. Compression deformity is noted within the lower thoracic spine which is seen on prior chest CT of 07/27/14 and is therefore old. No acute bony abnormality is definitely seen. Impression: 1. Cardiomegaly and large hiatal hernia. 2. Atelectasis within the left lung base. 3. Old compression deformity within the lower thoracic spine. 4. No acute bony abnormality is definitely seen. Nondisplaced rib fracture could easily be missed due to osteopenia. Diagnostic code #3
--- NOTE | 2018-09-27 12:34 | PCM.PN ---
- General Info Date of Service: 09/27/18 Functional Status: Reports: Pain Controlled, Tolerating Diet, Urinating - Review of Systems General: Reports: Weakness HEENT: Reports: No Symptoms Pulmonary: Reports: No Symptoms Cardiovascular: Reports: No Symptoms Gastrointestinal: Reports: No Symptoms Genitourinary: Reports: No Symptoms Musculoskeletal: Reports: No Symptoms Skin: Reports: No Symptoms Neurological: Reports: No Symptoms Psychiatric: Reports: No Symptoms - Patient Data Vitals - Most Recent: Last Vital Signs Temp 36.6 C 09/27/18 08:55 Pulse 84 09/27/18 09:00 Resp 18 09/27/18 08:55 BP 127/92 H 09/27/18 09:00 Pulse Ox 91 L 09/27/18 08:55 Weight - Most Recent: 90.31 kg I&O - Last 24 Hours: Intake & Output 09/26/18 09/27/18 09/27/18 22:59 06:59 14:59 Intake Total 1380 200 150 Output Total 700 Balance 680 200 150 Lab Results Last 24 Hours: Laboratory Results - last 24 hr 09/27/18 09/27/18 09/27/18 Range/Units 06:14 06:14 06:14 WBC 4.07 (3.98-10.04) K/mm3 RBC 3.69 L (3.98-5.22) M/mm3 Hgb 11.6 (11.2-15.7) gm/L Hct 37.1 (34.1-44.9) % MCV 100.5 H (79.4-94.8) fl MCH 31.4 (25.6-32.2) pg MCHC 31.3 L (32.2-35.5) g/dl RDW Std Deviation 47.5 H (36.4-46.3) fL Plt Count 206 (182-369) K/mm3 MPV 10.6 (9.4-12.3) fl Neut % (Auto) 57.8 (34.0-71.1) % Lymph % (Auto) 25.3 (19.3-51.7) % [place] % (Auto) 12.3 (4.7-12.5) % Eos % (Auto) 3.7 (0.7-5.8) Baso % (Auto) 0.7 (0.1-1.2) % Neut # (Auto) 2.35 (1.56-6.13) K/mm3 Lymph # (Auto) 1.03 L (1.18-3.74) K/mm3 [place] # (Auto) 0.50 H (0.24-0.36) K/mm3 Eos # (Auto) 0.15 (0.04-0.36) K/mm3 Baso # (Auto) 0.03 (0.01-0.08) K/mm3 PT 16.1 H (9.5-12.1) SECONDS INR 1.49 Sodium 140 (136-145) mEq/L Potassium 4.2 (3.5-5.1) mEq/L Chloride 103 (98-107) mEq/L Carbon Dioxide 30 (21-32) mEq/L Anion Gap 11.2 (5-15) BUN 19 H (7-18) mg/dL Creatinine 1.2 H (0.55-1.02) mg/dL Est Cr Clr Drug Dosing 24.92 mL/min Estimated GFR (MDRD) 42 (>60) mL/min BUN/Creatinine Ratio 15.8 (14-18) Glucose 118 H (83-115) mg/dL Calcium 9.3 (8.5-10.1) mg/dL Med Orders - Current: Current Medications Acetaminophen (Tylenol) 325 mg PO Q4H PRN PRN Reason: PAIN Last Admin: 09/26/18 21:49 Dose: 325 mg Acetaminophen/Codeine Phosphate (Tylenol With Codeine No.3 300mg/30mg) 1 tab PO Q6H PRN PRN Reason: Pain Albuterol (Proventil Hfa) 0 gm INH Q6H PRN PRN Reason: Shortness of Breath Last Admin: 09/27/18 08:16 Dose: 2 puff Bisacodyl (Dulcolax) 5 mg PO DAILY PRN PRN Reason: Constipation Calcium Carbonate (Calcium Carbonate/Vitamin D 600 Mg-200 Unit) 1 tab PO TIDMEALS [facility] Last Admin: 09/27/18 06:37 Dose: 1 tab Cholecalciferol (Vitamin D3) 5,000 unit PO DAILY [facility] Last Admin: 09/27/18 09:01 Dose: 5,000 unit Diltiazem HCl (Cardizem Cd) 180 mg PO DAILY [facility] Last Admin: 09/27/18 08:57 Dose: 180 mg Diphenhydramine HCl (Benadryl) 25 mg PO Q4H PRN PRN Reason: ALLERGIES Docusate Sodium (Colace) 100 mg PO BID PRN PRN Reason: Constipation Ferrous Sulfate (Ferrous Sulfate) 325 mg PO MoWeFr@0900 [facility] Last Admin: 09/26/18 09:36 Dose: 325 mg Guaifenesin/Phenylephrine HCl (Robitussin Dm) 10 ml PO QID PRN PRN Reason: Cough Last Admin: 09/25/18 15:34 Dose: 10 ml Lorazepam (Ativan) 0.5 mg PO BID PRN PRN Reason: Anxiety Last Admin: 09/27/18 10:27 Dose: 0.5 mg Magnesium Hydroxide (Milk Of Magnesia) 30 ml PO Q12H PRN PRN Reason: Constipation Metoprolol Tartrate (Lopressor) 12.5 mg PO BID [facility] (Budesonide/Avsdgffaiz01/4.5 2 Puff)*Pt Own Med* 2 puff INH BID [facility] Last Admin: 09/27/18 08:16 Dose: 2 puff Guaifenesin 400mg (*Own Med) 1 each PO Q12HR [facility] Last Admin: 09/27/18 10:28 Dose: 1 each Pantoprazole Sodium (Protonix) 40 mg PO BIDAC [facility] Last Admin: 09/27/18 05:55 Dose: 40 mg Paroxetine HCl (Paxil) 0 mg PO DAILY [facility] Last Admin: 09/27/18 09:01 Dose: 5 mg Paroxetine HCl (Paxil) 20 mg PO DAILY [facility] Last Admin: 09/27/18 09:01 Dose: 20 mg Levalbuterol Hcl [ (Xopenex] Inhaler) 0 each INH Q6H PRN PRN Reason: Shortness of Breath Polyethylene Glycol (Miralax) 17 gm PO DAILY PRN PRN Reason: Constipation Potassium Chloride (Klor-Con 10) 10 meq PO DAILY [facility] Last Admin: 09/27/18 09:02 Dose: 10 meq Pyridoxine HCl (Vitamin B6-Pyridoxine) 25 mg PO DAILY [facility] Last Admin: 09/27/18 08:56 Dose: 25 mg Senna/Docusate Sodium (Senna Plus) 1 tab PO BID PRN PRN Reason: Constipation Warfarin Sodium (Pharmacy To Dose - Warfarin) 0 dose .XX ASDIRECTED PRN PRN Reason: RX TO DOSE WARFARIN Warfarin Sodium (Coumadin) 7.5 mg PO ONETIME ONE Stop: 09/27/18 18:01 Discontinued Medications Acetaminophen/Codeine Phosphate (Tylenol With Codeine No.3 300mg/30mg) 30 - 300 tab PO Q6H PRN PRN Reason: Pain Last Admin: 09/27/18 08:57 Dose: 1 tab Diltiazem HCl (Cardizem Cd) 180 mg PO DAILY [facility] Lorazepam (Ativan) 0.5 mg PO BID PRN PRN Reason: Anxiety Last Admin: 09/25/18 20:47 Dose: 0.5 mg Metoprolol Tartrate (Lopressor) 0 mg PO BID [facility] Last Admin: 09/27/18 09:00 Dose: 12.5 mg (Albuterol Mdi Puff) *Pt Own Med* 2 puff INH Q6H PRN PRN Reason: Shortness of Breath Last Admin: 09/25/18 10:02 Dose: 2 puff Non-Formulary Medication (Alpha Lipoic Acid [Alpha Lipoic Acid]) 600 mg PO DAILY PRN PRN Reason: neuropathy Non-Formulary Medication (Cyanocobalamin (Vitamin B-12) [Cyanocobalamin Injection]) 5,000 mcg IM WEEKLY [facility] Non-Formulary Medication (Docusate Sodium [Docusate Sodium]) 100 mg PO BID PRN PRN Reason: Constipation Non-Formulary Medication (Guaifenesin/Pseudoephedrne Hcl) 1 tab PO Q12H [facility] Last Admin: 09/24/18 21:58 Dose: Not Given (Lorazepam [ Lorazepam] 0.5 Mg)* Pt Own Med* 0.5 mg PO BID PRN PRN Reason: Anxiety Last Admin: 09/24/18 22:03 Dose: 0.5 mg (Metoprolol Tartrate [Metoprolol Tartrate] 25 Mg)*Pt Own Med* 0 mg PO BID [facility] Last Admin: 09/25/18 09:11 Dose: 12.5 mg Non-Formulary Medication (Thiamine Hcl [Vitamin B-1]) 50 mg PO ASDIRECTED [facility] Non-Formulary Medication (Warfarin [Coumadin]) 5 mg PO [place] [facility] Non-Formulary Medication (Warfarin [Coumadin]) 7.5 mg PO MOWEFRSA [facility] Last Admin: 09/24/18 21:28 Dose: Not Given Paroxetine HCl (Paxil) 20 mg PO DAILY [facility] Diltiazem 24hr Cd (180 Mg Ptom) 0 each PO DAILY [facility] Last Admin: 09/25/18 09:26 Dose: 1 each Omeprazole 20 Mg Cap (Ptom) 0 each PO BIDAC [facility] Last Admin: 09/26/18 05:27 Dose: 1 each Paroxetine 20 Mg Tab (Ptom) 0 each PO DAILY [facility] Last Admin: 09/25/18 09:28 Dose: 1 each Paroxetine 10 Mg Tab (Ptom) 0 each PO DAILY [facility] Last Admin: 09/25/18 09:28 Dose: 0.5 each Potassium Chloride (Klor-Con 10) 10 meq PO DAILY [facility] Warfarin Sodium (Pharmacy To Dose - Warfarin) 1 dose .XX ASDIRECTED [facility] Warfarin Sodium (Coumadin) 5 mg PO ONETIME ONE Stop: 09/25/18 18:01 Last Admin: 09/25/18 18:41 Dose: 5 mg Warfarin Sodium (Coumadin) 5 mg PO QPM [facility] Stop: 09/26/18 21:00 Last Admin: 09/26/18 17:29 Dose: 5 mg - Exam Quality Assessment: Supplemental Oxygen, DVT Prophylaxis General: Alert, Oriented, Cooperative, No Acute Distress HEENT: Pupils Equal, Pupils Reactive, EOMI Neck: Trachea Midline, No JVD Lungs: Normal Respiratory Effort Cardiovascular: Regular Rate GI/Abdominal Exam: Normal Bowel Sounds, Soft, Non-Tender, No Organomegaly, No Distention (Female) Exam: Deferred Back Exam: Normal Inspection Extremities: Normal Inspection, Non-Tender, Normal Capillary Refill Skin: Warm Neurological: No New Focal Deficit, Normal Speech Psy/Mental Status: Alert, Normal Affect, Normal Mood - Problem List Review Problem List Initiated/Reviewed/Updated: Yes - My Orders Last 24 Hours: My Active Orders 09/27/18 11:13 Hip wo Cont Rt [CT] Routine 09/27/18 18:00 Warfarin [Coumadin] 7.5 mg PO ONETIME ONE - Plan Plan:: I/P: Acute: Assisted Living Placement * Pt's daughters don't feel they can't manage their mother at home * She has had recent fall/R hip fracture * Evaluated in ED for fall on 09/22/18--> CT showed only scalp hematoma * Uses a walker * Daughters suspect new-onset dementia * 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 Hand; may may change her mind however, patient has declined surgery. Resolved: Supratherapeutic INR * INR 4.25-->2.73 * Hold Warfarin for now--> RESUME HOME DOSE, restarted. * Monitor * F/U with PCP Chronic: Paroxysmal Afib DVT/VTE HLD GERD Hiatal Hernia CKD Urinary Incontinence Depression Anxiety Obesity Basal Cell Carcinoma of forehead h/o Cdiff Plan: Transferred to Medical Floor for Observation Other orders as indicated above Routine AM labs Clear liquid, then Heart Healthy Diet in AM PT/OT CM/SW DVT Prophylaxis/GI Prophylaxis Code Status: DNR/DNI; PCP: Dr. Parrsih LOS>96 hours with pain management.
[2018-09-27] MEDS ORDERED: Warfarin 7.5 MG Tab PO ONE (18:00)
[2018-09-27] MEDS: Metoprolol Tartrate 25 MG Tab PO SCH (21:14)
[2018-09-28] MEDS: Pantoprazole 40 MG Tab.CR PO SCH ×2 (06:33→17:46)
[2018-09-28] MEDS: Calcium Carbonate/Vitamin D3 600 MG-200 Units Tab PO SCH ×3 (06:33→17:46)
[2018-09-28] MEDS: Vitamin B6-pyridOXINE 50 MG Tab PO SCH (09:05)
[2018-09-28] MEDS: Potassium Chloride 10 MEQ TAB PO SCH (09:05)
[2018-09-28] MEDS: [UNRECOGNIZED DRUG - OTHER] PO SCH (09:06)
[2018-09-28] MEDS: Metoprolol Tartrate 25 MG Tab PO SCH ×2 (09:06→20:46)
[2018-09-28] MEDS: PAROXETINE 20 MG PO SCH (09:06)
[2018-09-28] MEDS: DILTIAZEM PO SCH (09:06)
[2018-09-28] MEDS: Cholecalciferol (Vitamin D3) 5,000 UNIT Tab PO SCH (09:06)
[2018-09-28] MEDS: PAROXETINE 10 MG PO SCH (09:07)
[2018-09-28] MEDS: GUAIFENESIN 400 MG PO SCH ×2 (09:07→20:43)
[2018-09-28] MEDS: BUDESONIDE INH SCH ×2 (09:52→20:29)
[2018-09-28] MEDS: FORMOTEROL INH SCH ×2 (09:52→20:29)
[2018-09-28] MEDS: ALBUTEROL INH PRN ×2 (09:53→20:30)
[2018-09-28] MEDS: Acetaminophen/Codeine 300-30 MG Tab PO PRN ×2 (12:50→23:02)
--- NOTE | 2018-09-28 17:31 | PCM.PN ---
- General Info Date of Service: 09/28/18 Functional Status: Reports: Pain Controlled, Tolerating Diet, Ambulating, Urinating - Review of Systems General: Reports: No Symptoms HEENT: Reports: No Symptoms Pulmonary: Reports: No Symptoms Cardiovascular: Reports: No Symptoms Gastrointestinal: Reports: No Symptoms Genitourinary: Reports: No Symptoms Musculoskeletal: Reports: No Symptoms Skin: Reports: No Symptoms Neurological: Reports: No Symptoms Psychiatric: Reports: No Symptoms - Patient Data Vitals - Most Recent: Last Vital Signs Temp 36.6 C 09/28/18 16:21 Pulse 68 09/28/18 16:21 Resp 18 09/28/18 16:21 BP 122/73 09/28/18 16:21 Pulse Ox 90 L 09/28/18 16:21 Weight - Most Recent: 90.764 kg I&O - Last 24 Hours: Intake & Output 09/28/18 09/28/18 09/28/18 06:59 14:59 22:59 Intake Total 350 420 600 Output Total 500 1050 Balance -150 420 -450 Lab Results Last 24 Hours: Laboratory Results - last 24 hr 09/28/18 09/28/18 09/28/18 Range/Units 06:10 06:10 06:10 WBC 4.16 (3.98-10.04) K/mm3 RBC 3.69 L (3.98-5.22) M/mm3 Hgb 11.6 (11.2-15.7) gm/L Hct 37.3 (34.1-44.9) % MCV 101.1 H (79.4-94.8) fl MCH 31.4 (25.6-32.2) pg MCHC 31.1 L (32.2-35.5) g/dl RDW Std Deviation 47.6 H (36.4-46.3) fL Plt Count 195 (182-369) K/mm3 MPV 10.5 (9.4-12.3) fl Neut % (Auto) 54.9 (34.0-71.1) % Lymph % (Auto) 29.8 (19.3-51.7) % [place] % (Auto) 10.1 (4.7-12.5) % Eos % (Auto) 4.8 (0.7-5.8) Baso % (Auto) 0.2 (0.1-1.2) % Neut # (Auto) 2.28 (1.56-6.13) K/mm3 Lymph # (Auto) 1.24 (1.18-3.74) K/mm3 [place] # (Auto) 0.42 H (0.24-0.36) K/mm3 Eos # (Auto) 0.20 (0.04-0.36) K/mm3 Baso # (Auto) 0.01 (0.01-0.08) K/mm3 Manual Slide Review Normal smear PT 15.5 H (9.5-12.1) SECONDS INR 1.43 Sodium 140 (136-145) mEq/L Potassium 4.2 (3.5-5.1) mEq/L Chloride 104 (98-107) mEq/L Carbon Dioxide 30 (21-32) mEq/L Anion Gap 10.2 (5-15) BUN 23 H (7-18) mg/dL Creatinine 1.1 H (0.55-1.02) mg/dL Est Cr Clr Drug Dosing 27.18 mL/min Estimated GFR (MDRD) 47 (>60) mL/min BUN/Creatinine Ratio 20.9 H (14-18) Glucose 114 (83-115) mg/dL Calcium 9.2 (8.5-10.1) mg/dL Med Orders - Current: Current Medications Acetaminophen (Tylenol) 325 mg PO Q4H PRN PRN Reason: PAIN Last Admin: 09/26/18 21:49 Dose: 325 mg Acetaminophen/Codeine Phosphate (Tylenol With Codeine No.3 300mg/30mg) 1 tab PO Q6H PRN PRN Reason: Pain Last Admin: 09/28/18 12:50 Dose: 1 tab Albuterol (Proventil Hfa) 0 gm INH Q6H PRN PRN Reason: Shortness of Breath Last Admin: 09/28/18 09:53 Dose: 2 puff Bisacodyl (Dulcolax) 5 mg PO DAILY PRN PRN Reason: Constipation Calcium Carbonate (Calcium Carbonate/Vitamin D 600 Mg-200 Unit) 1 tab PO TIDMEALS [facility] Last Admin: 09/28/18 12:50 Dose: 1 tab Cholecalciferol (Vitamin D3) 5,000 unit PO DAILY [facility] Last Admin: 09/28/18 09:06 Dose: 5,000 unit Diltiazem HCl (Cardizem Cd) 180 mg PO DAILY [facility] Last Admin: 09/28/18 09:06 Dose: 180 mg Diphenhydramine HCl (Benadryl) 25 mg PO Q4H PRN PRN Reason: ALLERGIES Docusate Sodium (Colace) 100 mg PO BID PRN PRN Reason: Constipation Ferrous Sulfate (Ferrous Sulfate) 325 mg PO MoWeFr@0900 [facility] Last Admin: 09/26/18 09:36 Dose: 325 mg Guaifenesin/Phenylephrine HCl (Robitussin Dm) 10 ml PO QID PRN PRN Reason: Cough Last Admin: 09/25/18 15:34 Dose: 10 ml Lorazepam (Ativan) 0.5 mg PO BID PRN PRN Reason: Anxiety Last Admin: 09/28/18 09:35 Dose: 0.5 mg Magnesium Hydroxide (Milk Of Magnesia) 30 ml PO Q12H PRN PRN Reason: Constipation Metoprolol Tartrate (Lopressor) 12.5 mg PO BID [facility] Last Admin: 09/28/18 09:06 Dose: 12.5 mg (Budesonide/Bobbrwxjzv86/4.5 2 Puff)*Pt Own Med* 2 puff INH BID [facility] Last Admin: 09/28/18 09:52 Dose: 2 puff Guaifenesin 400mg (*Own Med) 1 each PO Q12HR [facility] Last Admin: 09/28/18 09:07 Dose: 1 each Pantoprazole Sodium (Protonix) 40 mg PO BIDAC [facility] Last Admin: 09/28/18 06:33 Dose: 40 mg Paroxetine HCl (Paxil) 0 mg PO DAILY [facility] Last Admin: 09/28/18 09:07 Dose: 5 mg Paroxetine HCl (Paxil) 20 mg PO DAILY [facility] Last Admin: 09/28/18 09:06 Dose: 20 mg Levalbuterol Hcl [ (Xopenex] Inhaler) 0 each INH Q6H PRN PRN Reason: Shortness of Breath Polyethylene Glycol (Miralax) 17 gm PO DAILY PRN PRN Reason: Constipation Potassium Chloride (Klor-Con 10) 10 meq PO DAILY [facility] Last Admin: 09/28/18 09:05 Dose: 10 meq Pyridoxine HCl (Vitamin B6-Pyridoxine) 25 mg PO DAILY [facility] Last Admin: 09/28/18 09:05 Dose: 25 mg Senna/Docusate Sodium (Senna Plus) 1 tab PO BID PRN PRN Reason: Constipation Warfarin Sodium (Pharmacy To Dose - Warfarin) 0 dose .XX ASDIRECTED PRN PRN Reason: RX TO DOSE WARFARIN Warfarin Sodium (Coumadin) 5 mg PO ONETIME ONE Stop: 09/28/18 18:01 Discontinued Medications Acetaminophen/Codeine Phosphate (Tylenol With Codeine No.3 300mg/30mg) 30 - 300 tab PO Q6H PRN PRN Reason: Pain Last Admin: 09/27/18 08:57 Dose: 1 tab Diltiazem HCl (Cardizem Cd) 180 mg PO DAILY [facility] Lorazepam (Ativan) 0.5 mg PO BID PRN PRN Reason: Anxiety Last Admin: 09/25/18 20:47 Dose: 0.5 mg Metoprolol Tartrate (Lopressor) 0 mg PO BID [facility] Last Admin: 09/27/18 09:00 Dose: 12.5 mg (Albuterol Mdi Puff) *Pt Own Med* 2 puff INH Q6H PRN PRN Reason: Shortness of Breath Last Admin: 09/25/18 10:02 Dose: 2 puff Non-Formulary Medication (Alpha Lipoic Acid [Alpha Lipoic Acid]) 600 mg PO DAILY PRN PRN Reason: neuropathy Non-Formulary Medication (Cyanocobalamin (Vitamin B-12) [Cyanocobalamin Injection]) 5,000 mcg IM WEEKLY [facility] Non-Formulary Medication (Docusate Sodium [Docusate Sodium]) 100 mg PO BID PRN PRN Reason: Constipation Non-Formulary Medication (Guaifenesin/Pseudoephedrne Hcl) 1 tab PO Q12H [facility] Last Admin: 09/24/18 21:58 Dose: Not Given (Lorazepam [ Lorazepam] 0.5 Mg)* Pt Own Med* 0.5 mg PO BID PRN PRN Reason: Anxiety Last Admin: 09/24/18 22:03 Dose: 0.5 mg (Metoprolol Tartrate [Metoprolol Tartrate] 25 Mg)*Pt Own Med* 0 mg PO BID [facility] Last Admin: 09/25/18 09:11 Dose: 12.5 mg Non-Formulary Medication (Thiamine Hcl [Vitamin B-1]) 50 mg PO ASDIRECTED [facility] Non-Formulary Medication (Warfarin [Coumadin]) 5 mg PO SUTUTH [facility] Non-Formulary Medication (Warfarin [Coumadin]) 7.5 mg PO MOWEFRSA [facility] Last Admin: 09/24/18 21:28 Dose: Not Given Paroxetine HCl (Paxil) 20 mg PO DAILY [facility] Diltiazem 24hr Cd (180 Mg Ptom) 0 each PO DAILY [facility] Last Admin: 09/25/18 09:26 Dose: 1 each Omeprazole 20 Mg Cap (Ptom) 0 each PO BIDAC [facility] Last Admin: 09/26/18 05:27 Dose: 1 each Paroxetine 20 Mg Tab (Ptom) 0 each PO DAILY [facility] Last Admin: 09/25/18 09:28 Dose: 1 each Paroxetine 10 Mg Tab (Ptom) 0 each PO DAILY [facility] Last Admin: 09/25/18 09:28 Dose: 0.5 each Potassium Chloride (Klor-Con 10) 10 meq PO DAILY [facility] Warfarin Sodium (Pharmacy To Dose - Warfarin) 1 dose .XX ASDIRECTED [facility] Warfarin Sodium (Coumadin) 5 mg PO ONETIME ONE Stop: 09/25/18 18:01 Last Admin: 09/25/18 18:41 Dose: 5 mg Warfarin Sodium (Coumadin) 5 mg PO QPM [facility] Stop: 09/26/18 21:00 Last Admin: 09/26/18 17:29 Dose: 5 mg Warfarin Sodium (Coumadin) 7.5 mg PO ONETIME ONE Stop: 09/27/18 18:01 Last Admin: 09/27/18 17:38 Dose: 7.5 mg - Exam Quality Assessment: DVT Prophylaxis General: Alert, Oriented, Cooperative, No Acute Distress HEENT: Pupils Equal, Pupils Reactive, EOMI Neck: Trachea Midline, No JVD Lungs: Normal Respiratory Effort Cardiovascular: Regular Rate GI/Abdominal Exam: Normal Bowel Sounds, Soft, Non-Tender, No Organomegaly, No Distention (Female) Exam: Deferred Back Exam: Normal Inspection Extremities: Normal Inspection, Non-Tender, Normal Capillary Refill Skin: Warm Neurological: No New Focal Deficit Psy/Mental Status: Alert, Normal Affect, Normal Mood - Problem List Review Problem List Initiated/Reviewed/Updated: Yes - My Orders Last 24 Hours: My Active Orders 09/28/18 08:00 Hip wo Cont Rt [CT] Routine 09/28/18 18:00 Warfarin [Coumadin] 5 mg PO ONETIME ONE 09/29/18 05:00 BMP [BASIC METABOLIC PANEL,BMP] [CHEM] DAILY CBC WITH AUTO DIFF [HEME] DAILY FOLIC ACID [CHEM] Routine MAGNESIUM [CHEM] DAILY VITAMIN B12 [CHEM] Routine 09/30/18 05:00 BMP [BASIC METABOLIC PANEL,BMP] [CHEM] DAILY CBC WITH AUTO DIFF [HEME] DAILY MAGNESIUM [CHEM] DAILY - Plan Plan:: I/P: Acute: Assisted Living Placement * Pt's daughters don't feel they can't manage their mother at home * She has had recent fall/R hip fracture * Evaluated in ED for fall on 09/22/18--> CT showed only scalp hematoma * Uses a walker * Daughters suspect new-onset dementia * 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 Hand; may may change her mind however, patient has declined surgery. Resolved: Supratherapeutic INR * INR 4.25-->2.73 * Hold Warfarin for now--> RESUME HOME DOSE, restarted. * Monitor * F/U with PCP Chronic: Paroxysmal Afib DVT/VTE HLD GERD Hiatal Hernia CKD Urinary Incontinence Depression Anxiety Obesity Basal Cell Carcinoma of forehead h/o Cdiff Plan: Transferred to Medical Floor for Observation Other orders as indicated above Routine AM labs Clear liquid, then Heart Healthy Diet in AM PT/OT CM/SW DVT Prophylaxis/GI Prophylaxis Code Status: DNR/DNI; PCP: Dr. Parrish LOS>96 hours with pain management.
[2018-09-28] MEDS ORDERED: Warfarin 5 MG Tab PO ONE (18:00)
[2018-09-28] MEDS: Docusate Sodium 100 MG Cap PO PRN (20:44)
[2018-09-29] MEDS: Pantoprazole 40 MG Tab.CR PO SCH ×2 (06:00→17:05)
[2018-09-29] MEDS: Calcium Carbonate/Vitamin D3 600 MG-200 Units Tab PO SCH ×3 (06:00→17:05)
--- NOTE | 2018-09-29 06:37 | CT ---
CT right hip Technique: Multiple axial sections through the right hip were obtained. Reconstructed coronal and sagittal images were reviewed. Comparison: Previous right hip CT study of 09/25/18. Subcapital fracture is identified within the right hip. Mild joint space narrowing is seen within the right hip. Bony structures are osteopenic. No additional fracture is seen. Very minimal apex anterior angulation is seen. Impression: 1. Subcapital fracture within the right hip as noted above. Very minimal apex anterior angulation is seen as an interval change from previous study. Findings otherwise are stable. Diagnostic code #3 MTDD
[2018-09-29] MEDS: FORMOTEROL INH SCH ×2 (08:01→20:17)
[2018-09-29] MEDS: ALBUTEROL INH PRN ×2 (08:01→20:17)
[2018-09-29] MEDS: BUDESONIDE INH SCH ×2 (08:01→20:17)
[2018-09-29] MEDS: Acetaminophen 325 MG Tab PO PRN ×3 (08:04→20:45)
[2018-09-29] MEDS: Vitamin B6-pyridOXINE 50 MG Tab PO SCH (08:05)
[2018-09-29] MEDS: Metoprolol Tartrate 25 MG Tab PO SCH ×2 (08:05→20:44)
[2018-09-29] MEDS: Acetaminophen/Codeine 300-30 MG Tab PO PRN ×2 (08:05→17:22)
[2018-09-29] MEDS: Ferrous Sulfate 325 MG Tab PO SCH (08:06)
[2018-09-29] MEDS: DILTIAZEM PO SCH (08:06)
[2018-09-29] MEDS: PAROXETINE 20 MG PO SCH (08:06)
[2018-09-29] MEDS: [UNRECOGNIZED DRUG - OTHER] PO SCH (08:06)
[2018-09-29] MEDS: Potassium Chloride 10 MEQ TAB PO SCH (08:06)
[2018-09-29] MEDS: GUAIFENESIN 400 MG PO SCH ×2 (08:06→20:45)
[2018-09-29] MEDS: Cholecalciferol (Vitamin D3) 5,000 UNIT Tab PO SCH (08:06)
[2018-09-29] MEDS: PAROXETINE 10 MG PO SCH (08:08)
--- NOTE | 2018-09-29 14:28 | PCM.PN ---
- General Info Date of Service: 09/29/18 Subjective Update: Complains of a headache, has taken Tylenol. Functional Status: Reports: Pain Controlled, Tolerating Diet, Ambulating, Urinating - Review of Systems General: Reports: No Symptoms HEENT: Reports: No Symptoms Pulmonary: Reports: No Symptoms Cardiovascular: Reports: No Symptoms Gastrointestinal: Reports: No Symptoms Genitourinary: Reports: No Symptoms Musculoskeletal: Reports: No Symptoms Skin: Reports: No Symptoms Neurological: Reports: No Symptoms Psychiatric: Reports: No Symptoms - Patient Data Vitals - Most Recent: Last Vital Signs Temp 36.5 C 09/29/18 03:00 Pulse 65 09/29/18 08:05 Resp 16 09/29/18 03:00 BP 134/84 09/29/18 08:05 Pulse Ox 90 L 09/29/18 08:01 Weight - Most Recent: 90.628 kg I&O - Last 24 Hours: Intake & Output 09/28/18 09/29/18 09/29/18 22:59 06:59 14:59 Intake Total 600 300 240 Output Total 1050 650 Balance -450 -350 240 Lab Results Last 24 Hours: Laboratory Results - last 24 hr 09/29/18 09/29/18 09/29/18 Range/Units 06:30 06:30 06:30 WBC 4.52 (3.98-10.04) K/mm3 RBC 3.85 L (3.98-5.22) M/mm3 Hgb 12.1 (11.2-15.7) gm/L Hct 38.9 (34.1-44.9) % MCV 101.0 H (79.4-94.8) fl MCH 31.4 (25.6-32.2) pg MCHC 31.1 L (32.2-35.5) g/dl RDW Std Deviation 47.7 H (36.4-46.3) fL Plt Count 216 (182-369) K/mm3 MPV 10.3 (9.4-12.3) fl Neut % (Auto) 60.8 (34.0-71.1) % Lymph % (Auto) 26.1 (19.3-51.7) % [place] % (Auto) 9.3 (4.7-12.5) % Eos % (Auto) 2.9 (0.7-5.8) Baso % (Auto) 0.7 (0.1-1.2) % Neut # (Auto) 2.75 (1.56-6.13) K/mm3 Lymph # (Auto) 1.18 (1.18-3.74) K/mm3 [place] # (Auto) 0.42 H (0.24-0.36) K/mm3 Eos # (Auto) 0.13 (0.04-0.36) K/mm3 Baso # (Auto) 0.03 (0.01-0.08) K/mm3 PT (9.5-12.1) SECONDS INR Sodium 138 (136-145) mEq/L Potassium 4.4 (3.5-5.1) mEq/L Chloride 103 (98-107) mEq/L Carbon Dioxide 30 (21-32) mEq/L Anion Gap 9.4 (5-15) BUN 29 H (7-18) mg/dL Creatinine 1.2 H (0.55-1.02) mg/dL Est Cr Clr Drug Dosing 24.92 mL/min Estimated GFR (MDRD) 42 (>60) mL/min BUN/Creatinine Ratio 24.2 H (14-18) Glucose 124 H (83-115) mg/dL Calcium 9.3 (8.5-10.1) mg/dL Magnesium 2.0 (1.8-2.4) mg/dl Vitamin B12 663 (193-986) pg/ml Folate 14.5 (8.6-58.9) ng/mL 09/29/18 Range/Units 09:40 WBC (3.98-10.04) K/mm3 RBC (3.98-5.22) M/mm3 Hgb (11.2-15.7) gm/L Hct (34.1-44.9) % MCV (79.4-94.8) fl MCH (25.6-32.2) pg MCHC (32.2-35.5) g/dl RDW Std Deviation (36.4-46.3) fL Plt Count (182-369) K/mm3 MPV (9.4-12.3) fl Neut % (Auto) (34.0-71.1) % Lymph % (Auto) (19.3-51.7) % [place] % (Auto) (4.7-12.5) % Eos % (Auto) (0.7-5.8) Baso % (Auto) (0.1-1.2) % Neut # (Auto) (1.56-6.13) K/mm3 Lymph # (Auto) (1.18-3.74) K/mm3 [place] # (Auto) (0.24-0.36) K/mm3 Eos # (Auto) (0.04-0.36) K/mm3 Baso # (Auto) (0.01-0.08) K/mm3 PT 17.3 H (9.5-12.1) SECONDS INR 1.60 Sodium (136-145) mEq/L Potassium (3.5-5.1) mEq/L Chloride (98-107) mEq/L Carbon Dioxide (21-32) mEq/L Anion Gap (5-15) BUN (7-18) mg/dL Creatinine (0.55-1.02) mg/dL Est Cr Clr Drug Dosing mL/min Estimated GFR (MDRD) (>60) mL/min BUN/Creatinine Ratio (14-18) Glucose (83-115) mg/dL Calcium (8.5-10.1) mg/dL Magnesium (1.8-2.4) mg/dl Vitamin B12 (193-986) pg/ml Folate (8.6-58.9) ng/mL Med Orders - Current: Current Medications Acetaminophen (Tylenol) 325 mg PO Q4H PRN PRN Reason: PAIN Last Admin: 09/29/18 11:03 Dose: 325 mg Acetaminophen/Codeine Phosphate (Tylenol With Codeine No.3 300mg/30mg) 1 tab PO Q6H PRN PRN Reason: Pain Last Admin: 09/29/18 08:05 Dose: 1 tab Albuterol (Proventil Hfa) 0 gm INH Q6H PRN PRN Reason: Shortness of Breath Last Admin: 09/29/18 08:01 Dose: 2 puff Bisacodyl (Dulcolax) 5 mg PO DAILY PRN PRN Reason: Constipation Calcium Carbonate (Calcium Carbonate/Vitamin D 600 Mg-200 Unit) 1 tab PO TIDMEALS [facility] Last Admin: 09/29/18 10:04 Dose: 1 tab Cholecalciferol (Vitamin D3) 5,000 unit PO DAILY [facility] Last Admin: 09/29/18 08:06 Dose: 5,000 unit Diltiazem HCl (Cardizem Cd) 180 mg PO DAILY [facility] Last Admin: 09/29/18 08:06 Dose: 180 mg Diphenhydramine HCl (Benadryl) 25 mg PO Q4H PRN PRN Reason: ALLERGIES Docusate Sodium (Colace) 100 mg PO BID PRN PRN Reason: Constipation Last Admin: 09/28/18 20:44 Dose: 100 mg Ferrous Sulfate (Ferrous Sulfate) 325 mg PO MoWeFr@0900 [facility] Last Admin: 09/29/18 08:06 Dose: 325 mg Guaifenesin/Phenylephrine HCl (Robitussin Dm) 10 ml PO QID PRN PRN Reason: Cough Last Admin: 09/25/18 15:34 Dose: 10 ml Lorazepam (Ativan) 0.5 mg PO BID PRN PRN Reason: Anxiety Last Admin: 09/29/18 08:21 Dose: 0.5 mg Magnesium Hydroxide (Milk Of Magnesia) 30 ml PO Q12H PRN PRN Reason: Constipation Metoprolol Tartrate (Lopressor) 12.5 mg PO BID [facility] Last Admin: 09/29/18 08:05 Dose: 12.5 mg (Budesonide/Ifkiyzpzfl24/4.5 2 Puff)*Pt Own Med* 2 puff INH BID [facility] Last Admin: 09/29/18 08:01 Dose: 2 puff Guaifenesin 400mg (*Own Med) 1 each PO Q12HR [facility] Last Admin: 09/29/18 08:06 Dose: 1 each Pantoprazole Sodium (Protonix) 40 mg PO BIDAC [facility] Last Admin: 09/29/18 06:00 Dose: 40 mg Paroxetine HCl (Paxil) 0 mg PO DAILY [facility] Last Admin: 09/29/18 08:08 Dose: 5 mg Paroxetine HCl (Paxil) 20 mg PO DAILY [facility] Last Admin: 09/29/18 08:06 Dose: 20 mg Levalbuterol Hcl [ (Xopenex] Inhaler) 0 each INH Q6H PRN PRN Reason: Shortness of Breath Polyethylene Glycol (Miralax) 17 gm PO DAILY PRN PRN Reason: Constipation Last Admin: 09/29/18 08:18 Dose: 17 gm Potassium Chloride (Klor-Con 10) 10 meq PO DAILY [facility] Last Admin: 09/29/18 08:06 Dose: 10 meq Pyridoxine HCl (Vitamin B6-Pyridoxine) 25 mg PO DAILY [facility] Last Admin: 09/29/18 08:05 Dose: 25 mg Senna/Docusate Sodium (Senna Plus) 1 tab PO BID PRN PRN Reason: Constipation Warfarin Sodium (Pharmacy To Dose - Warfarin) 0 dose .XX ASDIRECTED PRN PRN Reason: RX TO DOSE WARFARIN Warfarin Sodium (Coumadin) 5 mg PO QPM [facility] Stop: 09/29/18 18:01 Discontinued Medications Acetaminophen/Codeine Phosphate (Tylenol With Codeine No.3 300mg/30mg) 30 - 300 tab PO Q6H PRN PRN Reason: Pain Last Admin: 09/27/18 08:57 Dose: 1 tab Diltiazem HCl (Cardizem Cd) 180 mg PO DAILY [facility] Lorazepam (Ativan) 0.5 mg PO BID PRN PRN Reason: Anxiety Last Admin: 09/25/18 20:47 Dose: 0.5 mg Metoprolol Tartrate (Lopressor) 0 mg PO BID [facility] Last Admin: 09/27/18 09:00 Dose: 12.5 mg (Albuterol Mdi Puff) *Pt Own Med* 2 puff INH Q6H PRN PRN Reason: Shortness of Breath Last Admin: 09/25/18 10:02 Dose: 2 puff Non-Formulary Medication (Alpha Lipoic Acid [Alpha Lipoic Acid]) 600 mg PO DAILY PRN PRN Reason: neuropathy Non-Formulary Medication (Cyanocobalamin (Vitamin B-12) [Cyanocobalamin Injection]) 5,000 mcg IM WEEKLY [facility] Non-Formulary Medication (Docusate Sodium [Docusate Sodium]) 100 mg PO BID PRN PRN Reason: Constipation Non-Formulary Medication (Guaifenesin/Pseudoephedrne Hcl) 1 tab PO Q12H [facility] Last Admin: 09/24/18 21:58 Dose: Not Given (Lorazepam [ Lorazepam] 0.5 Mg)* Pt Own Med* 0.5 mg PO BID PRN PRN Reason: Anxiety Last Admin: 09/24/18 22:03 Dose: 0.5 mg (Metoprolol Tartrate [Metoprolol Tartrate] 25 Mg)*Pt Own Med* 0 mg PO BID [facility] Last Admin: 09/25/18 09:11 Dose: 12.5 mg Non-Formulary Medication (Thiamine Hcl [Vitamin B-1]) 50 mg PO ASDIRECTED [facility] Non-Formulary Medication (Warfarin [Coumadin]) 5 mg PO SUTUTH [facility] Non-Formulary Medication (Warfarin [Coumadin]) 7.5 mg PO MOWEFRSA [facility] Last Admin: 09/24/18 21:28 Dose: Not Given Paroxetine HCl (Paxil) 20 mg PO DAILY [facility] Diltiazem 24hr Cd (180 Mg Ptom) 0 each PO DAILY [facility] Last Admin: 09/25/18 09:26 Dose: 1 each Omeprazole 20 Mg Cap (Ptom) 0 each PO BIDAC [facility] Last Admin: 09/26/18 05:27 Dose: 1 each Paroxetine 20 Mg Tab (Ptom) 0 each PO DAILY [facility] Last Admin: 09/25/18 09:28 Dose: 1 each Paroxetine 10 Mg Tab (Ptom) 0 each PO DAILY [facility] Last Admin: 09/25/18 09:28 Dose: 0.5 each Potassium Chloride (Klor-Con 10) 10 meq PO DAILY [facility] Warfarin Sodium (Pharmacy To Dose - Warfarin) 1 dose .XX ASDIRECTED [facility] Warfarin Sodium (Coumadin) 5 mg PO ONETIME ONE Stop: 09/25/18 18:01 Last Admin: 09/25/18 18:41 Dose: 5 mg Warfarin Sodium (Coumadin) 5 mg PO QPM [facility] Stop: 09/26/18 21:00 Last Admin: 09/26/18 17:29 Dose: 5 mg Warfarin Sodium (Coumadin) 7.5 mg PO ONETIME ONE Stop: 09/27/18 18:01 Last Admin: 09/27/18 17:38 Dose: 7.5 mg Warfarin Sodium (Coumadin) 5 mg PO ONETIME ONE Stop: 09/28/18 18:01 Last Admin: 09/28/18 17:46 Dose: 5 mg - Exam Quality Assessment: DVT Prophylaxis General: Alert, Oriented, Cooperative, No Acute Distress HEENT: Pupils Equal, Pupils Reactive, EOMI Neck: Trachea Midline, No JVD Lungs: Normal Respiratory Effort Cardiovascular: Regular Rate GI/Abdominal Exam: Normal Bowel Sounds, Soft, Non-Tender, No Organomegaly, No Distention (Female) Exam: Deferred Back Exam: Normal Inspection Extremities: Normal Inspection, Non-Tender, Normal Capillary Refill Skin: Warm Neurological: No New Focal Deficit Psy/Mental Status: Alert - Problem List Review Problem List Initiated/Reviewed/Updated: Yes - My Orders Last 24 Hours: My Active Orders 09/29/18 18:00 Warfarin [Coumadin] 5 mg PO QPM 09/30/18 05:00 BMP [BASIC METABOLIC PANEL,BMP] [CHEM] DAILY CBC WITH AUTO DIFF [HEME] DAILY MAGNESIUM [CHEM] DAILY 09/30/18 05:11 INR,PT,PROTHROMBIN TIME [COAG] AM - Plan Plan:: I/P: Acute: Assisted Living Placement * Pt's daughters don't feel they can't manage their mother at home * She has had recent fall/R hip fracture * Evaluated in ED for fall on 09/22/18--> CT showed only scalp hematoma * Uses a walker * Daughters suspect new-onset dementia * [employer]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 Hand; may may change her mind however, patient has declined surgery. Resolved: Supratherapeutic INR * INR 4.25-->2.73 * Hold Warfarin for now--> RESUME HOME DOSE, restarted. * Monitor * F/U with PCP Chronic: Paroxysmal Afib DVT/VTE HLD GERD Hiatal Hernia CKD Urinary Incontinence Depression Anxiety Obesity Basal Cell Carcinoma of forehead h/o Cdiff Plan: Transferred to Medical Floor for Observation Other orders as indicated above Routine AM labs Clear liquid, then Heart Healthy Diet in AM PT/OT CM/SW DVT Prophylaxis/GI Prophylaxis Code Status: DNR/DNI; PCP: Dr. Parrish LOS>96 hours with pain management--->currently controlled. Has been refused by [facility] today, 09/29/18.
[2018-09-29] MEDS ORDERED: Warfarin 5 MG Tab PO SCH (18:00)
[2018-09-30] MEDS: Acetaminophen/Codeine 300-30 MG Tab PO PRN (02:12)
[2018-09-30] MEDS: Calcium Carbonate/Vitamin D3 600 MG-200 Units Tab PO SCH ×4 (05:53→17:12)
[2018-09-30] MEDS: Pantoprazole 40 MG Tab.CR PO SCH ×2 (05:53→17:12)
[2018-09-30] MEDS: FORMOTEROL INH SCH ×2 (08:41→20:30)
[2018-09-30] MEDS: BUDESONIDE INH SCH ×2 (08:41→20:30)
[2018-09-30] MEDS: ALBUTEROL INH PRN ×2 (08:42→20:30)
[2018-09-30] MEDS: GUAIFENESIN 400 MG PO SCH ×2 (08:50→21:07)
[2018-09-30] MEDS: DILTIAZEM PO SCH (08:51)
[2018-09-30] MEDS: [UNRECOGNIZED DRUG - OTHER] PO SCH (08:51)
[2018-09-30] MEDS: Potassium Chloride 10 MEQ TAB PO SCH (08:51)
[2018-09-30] MEDS: PAROXETINE 20 MG PO SCH (08:52)
[2018-09-30] MEDS: Metoprolol Tartrate 25 MG Tab PO SCH ×2 (08:54→21:07)
[2018-09-30] MEDS: Cholecalciferol (Vitamin D3) 5,000 UNIT Tab PO SCH (08:55)
[2018-09-30] MEDS: Acetaminophen 325 MG Tab PO PRN ×2 (08:55→21:08)
[2018-09-30] MEDS: Vitamin B6-pyridOXINE 50 MG Tab PO SCH (08:56)
[2018-09-30] MEDS: PAROXETINE 10 MG PO SCH (08:58)
--- NOTE | 2018-09-30 17:26 | PCM.PN ---
- General Info Date of Service: 09/30/18 Admission Dx/Problem (Free Text): Admission Diagnosis/Problem Admission Diagnosis/Problem INR (international normal ratio) abnormal Subjective Update: In to see Amparo. She is laying in bed. She has no current complaints except that she is frustrated with her hip fracture. She continues to ask questions regarding weight-bearing, which I responded she is to be non-weight bearing on the right side. She is to f/u with Dr. Hand outpt and will then have f/u Xrays to decide if non-surgical treatment is working. All questions were answered. No concerns from nursing. She may be D/C'd in the AM pending [facility]. Functional Status: Reports: Pain Controlled, Tolerating Diet, Ambulating, Urinating - Review of Systems General: Reports: No Symptoms. Denies: Fever, Chills HEENT: Reports: No Symptoms Pulmonary: Reports: No Symptoms. Denies: Shortness of Breath, Cough Cardiovascular: Reports: No Symptoms Gastrointestinal: Reports: No Symptoms Genitourinary: Reports: No Symptoms Musculoskeletal: Reports: Leg Pain (s/p R hip fx, improving) Skin: Reports: No Symptoms Neurological: Reports: Confusion, Difficulty Walking, Gait Disturbance. Denies : Numbness, Weakness Psychiatric: Reports: Confusion - Patient Data Vitals - Most Recent: Last Vital Signs Temp 97.2 F 09/30/18 16:11 Pulse 71 09/30/18 16:11 Resp 18 09/30/18 16:11 BP 138/74 09/30/18 15:00 Pulse Ox 92 L 09/30/18 16:11 Weight - Most Recent: 202 lb 6 oz I&O - Last 24 Hours: Intake & Output 09/30/18 09/30/18 09/30/18 06:59 14:59 22:59 Intake Total 700 420 Output Total 225 Balance 475 420 Lab Results Last 24 Hours: Laboratory Results - last 24 hr 09/30/18 09/30/18 09/30/18 Range/Units 06:15 06:15 06:15 WBC 4.41 (3.98-10.04) K/mm3 RBC 3.62 L (3.98-5.22) M/mm3 Hgb 11.5 (11.2-15.7) gm/L Hct 36.8 (34.1-44.9) % MCV 101.7 H (79.4-94.8) fl MCH 31.8 (25.6-32.2) pg MCHC 31.3 L (32.2-35.5) g/dl RDW Std Deviation 48.2 H (36.4-46.3) fL Plt Count 200 (182-369) K/mm3 MPV 10.3 (9.4-12.3) fl Neut % (Auto) 61.2 (34.0-71.1) % Lymph % (Auto) 26.3 (19.3-51.7) % [place] % (Auto) 8.4 (4.7-12.5) % Eos % (Auto) 3.4 (0.7-5.8) Baso % (Auto) 0.5 (0.1-1.2) % Neut # (Auto) 2.70 (1.56-6.13) K/mm3 Lymph # (Auto) 1.16 L (1.18-3.74) K/mm3 [place] # (Auto) 0.37 H (0.24-0.36) K/mm3 Eos # (Auto) 0.15 (0.04-0.36) K/mm3 Baso # (Auto) 0.02 (0.01-0.08) K/mm3 PT 19.0 H (9.5-12.1) SECONDS INR 1.76 Sodium 138 (136-145) mEq/L Potassium 4.1 (3.5-5.1) mEq/L Chloride 102 (98-107) mEq/L Carbon Dioxide 31 (21-32) mEq/L Anion Gap 9.1 (5-15) BUN 26 H (7-18) mg/dL Creatinine 1.1 H (0.55-1.02) mg/dL Est Cr Clr Drug Dosing 27.18 mL/min Estimated GFR (MDRD) 47 (>60) mL/min BUN/Creatinine Ratio 23.6 H (14-18) Glucose 116 H (83-115) mg/dL Calcium 9.0 (8.5-10.1) mg/dL Magnesium 1.9 (1.8-2.4) mg/dl Med Orders - Current: Current Medications Acetaminophen (Tylenol) 325 mg PO Q4H PRN PRN Reason: PAIN Last Admin: 09/30/18 08:55 Dose: 325 mg Acetaminophen/Codeine Phosphate (Tylenol With Codeine No.3 300mg/30mg) 1 tab PO Q6H PRN PRN Reason: Pain Last Admin: 09/30/18 02:12 Dose: 1 tab Albuterol (Proventil Hfa) 0 gm INH Q6H PRN PRN Reason: Shortness of Breath Last Admin: 09/30/18 08:42 Dose: 2 puff Bisacodyl (Dulcolax) 5 mg PO DAILY PRN PRN Reason: Constipation Calcium Carbonate (Calcium Carbonate/Vitamin D 600 Mg-200 Unit) 1 tab PO TIDMEALS [facility] Last Admin: 09/30/18 17:12 Dose: 1 tab Cholecalciferol (Vitamin D3) 5,000 unit PO DAILY [facility] Last Admin: 09/30/18 08:55 Dose: 5,000 unit Diltiazem HCl (Cardizem Cd) 180 mg PO DAILY [facility] Last Admin: 09/30/18 08:51 Dose: 180 mg Diphenhydramine HCl (Benadryl) 25 mg PO Q4H PRN PRN Reason: ALLERGIES Docusate Sodium (Colace) 100 mg PO BID PRN PRN Reason: Constipation Last Admin: 09/28/18 20:44 Dose: 100 mg Ferrous Sulfate (Ferrous Sulfate) 325 mg PO MoWeFr@0900 [facility] Last Admin: 09/29/18 08:06 Dose: 325 mg Guaifenesin/Phenylephrine HCl (Robitussin Dm) 10 ml PO QID PRN PRN Reason: Cough Last Admin: 09/25/18 15:34 Dose: 10 ml Lorazepam (Ativan) 0.5 mg PO BID PRN PRN Reason: Anxiety Last Admin: 09/30/18 08:52 Dose: 0.5 mg Magnesium Hydroxide (Milk Of Magnesia) 30 ml PO Q12H PRN PRN Reason: Constipation Metoprolol Tartrate (Lopressor) 12.5 mg PO BID [facility] Last Admin: 09/30/18 08:54 Dose: 12.5 mg Pantoprazole Sodium (Protonix) 40 mg PO BIDAC [facility] Last Admin: 09/30/18 17:12 Dose: 40 mg Paroxetine HCl (Paxil) 0 mg PO DAILY [facility] Last Admin: 09/30/18 08:58 Dose: 5 mg Paroxetine HCl (Paxil) 20 mg PO DAILY [facility] Last Admin: 09/30/18 08:52 Dose: 20 mg Levalbuterol Hcl [ (Xopenex] Inhaler) 0 each INH Q6H PRN PRN Reason: Shortness of Breath Guaifenesin 400mg (*Own Med) 0 each PO Q12HR NAVID (Budesonide/Vakpqkspak90/4.5 2 Puff)*Pt Own Med* 0 each INH BID [facility] Polyethylene Glycol (Miralax) 17 gm PO DAILY PRN PRN Reason: Constipation Last Admin: 09/29/18 08:18 Dose: 17 gm Potassium Chloride (Klor-Con 10) 10 meq PO DAILY [facility] Last Admin: 09/30/18 08:51 Dose: 10 meq Pyridoxine HCl (Vitamin B6-Pyridoxine) 25 mg PO DAILY [facility] Last Admin: 09/30/18 08:56 Dose: 25 mg Senna/Docusate Sodium (Senna Plus) 1 tab PO BID PRN PRN Reason: Constipation Warfarin Sodium (Pharmacy To Dose - Warfarin) 0 dose .XX ASDIRECTED PRN PRN Reason: RX TO DOSE WARFARIN Warfarin Sodium (Coumadin) 5 mg PO QPM [facility] Stop: 09/30/18 18:01 Last Admin: 09/30/18 17:12 Dose: 5 mg Discontinued Medications Acetaminophen/Codeine Phosphate (Tylenol With Codeine No.3 300mg/30mg) 30 - 300 tab PO Q6H PRN PRN Reason: Pain Last Admin: 09/27/18 08:57 Dose: 1 tab Diltiazem HCl (Cardizem Cd) 180 mg PO DAILY [facility] Lorazepam (Ativan) 0.5 mg PO BID PRN PRN Reason: Anxiety Last Admin: 09/25/18 20:47 Dose: 0.5 mg Metoprolol Tartrate (Lopressor) 0 mg PO BID [facility] Last Admin: 09/27/18 09:00 Dose: 12.5 mg (Albuterol Mdi Puff) *Pt Own Med* 2 puff INH Q6H PRN PRN Reason: Shortness of Breath Last Admin: 09/25/18 10:02 Dose: 2 puff Non-Formulary Medication (Alpha Lipoic Acid [Alpha Lipoic Acid]) 600 mg PO DAILY PRN PRN Reason: neuropathy (Budesonide/Flhdhzthur31/4.5 2 Puff)*Pt Own Med* 2 puff INH BID [facility] Last Admin: 09/30/18 08:41 Dose: 2 puff Non-Formulary Medication (Cyanocobalamin (Vitamin B-12) [Cyanocobalamin Injection]) 5,000 mcg IM WEEKLY [facility] Non-Formulary Medication (Docusate Sodium [Docusate Sodium]) 100 mg PO BID PRN PRN Reason: Constipation Non-Formulary Medication (Guaifenesin/Pseudoephedrne Hcl) 1 tab PO Q12H [facility] Last Admin: 09/24/18 21:58 Dose: Not Given (Lorazepam [ Lorazepam] 0.5 Mg)* Pt Own Med* 0.5 mg PO BID PRN PRN Reason: Anxiety Last Admin: 09/24/18 22:03 Dose: 0.5 mg (Metoprolol Tartrate [Metoprolol Tartrate] 25 Mg)*Pt Own Med* 0 mg PO BID [facility] Last Admin: 09/25/18 09:11 Dose: 12.5 mg Non-Formulary Medication (Thiamine Hcl [Vitamin B-1]) 50 mg PO ASDIRECTED [facility] Non-Formulary Medication (Warfarin [Coumadin]) 5 mg PO [place] [facility] Non-Formulary Medication (Warfarin [Coumadin]) 7.5 mg PO [facility] Last Admin: 09/24/18 21:28 Dose: Not Given Guaifenesin 400mg (*Own Med) 1 each PO Q12HR [facility] Last Admin: 09/30/18 08:50 Dose: 1 each Paroxetine HCl (Paxil) 20 mg PO DAILY [facility] Diltiazem 24hr Cd (180 Mg Ptom) 0 each PO DAILY [facility] Last Admin: 09/25/18 09:26 Dose: 1 each Omeprazole 20 Mg Cap (Ptom) 0 each PO BIDAC [facility] Last Admin: 09/26/18 05:27 Dose: 1 each Paroxetine 20 Mg Tab (Ptom) 0 each PO DAILY [facility] Last Admin: 09/25/18 09:28 Dose: 1 each Paroxetine 10 Mg Tab (Ptom) 0 each PO DAILY [facility] Last Admin: 09/25/18 09:28 Dose: 0.5 each Potassium Chloride (Klor-Con 10) 10 meq PO DAILY [facility] Warfarin Sodium (Pharmacy To Dose - Warfarin) 1 dose .XX ASDIRECTED [facility] Warfarin Sodium (Coumadin) 5 mg PO ONETIME ONE Stop: 09/25/18 18:01 Last Admin: 09/25/18 18:41 Dose: 5 mg Warfarin Sodium (Coumadin) 5 mg PO QPM [facility] Stop: 09/26/18 21:00 Last Admin: 09/26/18 17:29 Dose: 5 mg Warfarin Sodium (Coumadin) 7.5 mg PO ONETIME ONE Stop: 09/27/18 18:01 Last Admin: 09/27/18 17:38 Dose: 7.5 mg Warfarin Sodium (Coumadin) 5 mg PO ONETIME ONE Stop: 09/28/18 18:01 Last Admin: 09/28/18 17:46 Dose: 5 mg Warfarin Sodium (Coumadin) 5 mg PO QPM [facility] Stop: 09/29/18 18:01 Last Admin: 09/29/18 17:06 Dose: 5 mg - Exam Quality Assessment: DVT Prophylaxis General: Alert, Oriented, Cooperative, No Acute Distress HEENT: Pupils Equal, Pupils Reactive, EOMI, Mucous Membr. Moist/[place] Neck: Supple Lungs: Clear to Auscultation, Normal Respiratory Effort Cardiovascular: Regular Rate, Regular Rhythm GI/Abdominal Exam: Normal Bowel Sounds, Soft, Non-Tender, No Organomegaly, No Distention, No Abnormal Bruit, No Mass, Pelvis Stable (Female) Exam: Deferred Back Exam: Normal Inspection Extremities: Normal Inspection, Non-Tender, No Pedal Edema, Normal Capillary Refill, Leg Pain (s/p R hip fx, improving), Limited Range of Motion (s/p R hip fx, improving) Peripheral Pulses: 2+: Posterior Tibial (L), Posterior Tibial (R), Dorsalis Pedis (L), Dorsalis Pedis (R) Skin: Warm, Dry, Intact Neurological: No New Focal Deficit Psy/Mental Status: Alert - Problem List & Annotations (1) Pain of right lower extremity SNOMED Code(s): 072557151 Code(s): M79.604 - PAIN IN RIGHT LEG Status: Acute Priority: Medium Current Visit: Yes (2) Self-care deficit in patient living alone SNOMED Code(s): 79678759 Code(s): R46.89 - OTHER SYMPTOMS AND SIGNS INVOLVING APPEARANCE AND BEHAVIOR Status: Acute Priority: High Current Visit: Yes (3) Supratherapeutic INR SNOMED Code(s): 225289911 Code(s): R79.1 - ABNORMAL COAGULATION PROFILE Status: Acute Priority: High Current Visit: Yes (4) Subcapital fracture of femur SNOMED Code(s): 151745094 Code(s): S72.019A - UNSP INTRACAPSULAR FRACTURE OF UNSP FEMUR, INIT FOR CLOS FX Status: Acute Priority: High Current Visit: Yes Qualifiers: Encounter type: sequela Fracture type: closed Laterality: right Qualified Code(s): S72.011S - Unspecified intracapsular fracture of right femur , sequela - Problem List Review Problem List Initiated/Reviewed/Updated: Yes - My Orders Last 24 Hours: My Active Orders 09/30/18 18:00 Warfarin [Coumadin] 5 mg PO QPM 09/30/18 21:00 Patient's Own Medication [Ptom] 0 each INH BID Patient's Own Medication [Ptom] 0 each PO Q12HR - Plan Plan:: I/P: Acute: Assisted Living Placement * Pt's daughters don't feel they can't manage their mother at home * She has had recent fall/R hip fracture * Evaluated in ED for fall on 09/22/18--> CT showed only scalp hematoma * Uses a walker * Daughters suspect new-onset dementia * Pt passed [employer] cog eval * Clinically there does seem to be some delay with conversation/processing, but she is A+O x 3 * PT/OT * CM/SW consult for placement Right Hip fx * 09/12/18 had difficulty getting out of car and has had pain since * 08/24/18 Seen in walk-in clinic--> Xray negative; Tylenol 3 prescribed * CT hip 09/25/18--> Slightly impacted subcapital fracture within the right hip, will repeat 09/28/18 * Pain management PRN * PT/OT * Consult orthopedic Dr. Hand--> pt has currently declined surgery * Recommends PT for ambulation/gait training and non-weight bearing on right side * F/U outpt and get repeat XR; if fracture becomes displaced will discuss surgery option again Resolved: Supratherapeutic INR * INR 4.25-->2.73 * Hold Warfarin for now--> RESUME HOME DOSE, restarted. * Monitor * F/U with PCP Chronic: Paroxysmal Afib DVT/VTE HLD GERD Hiatal Hernia CKD Urinary Incontinence Depression Anxiety Obesity Basal Cell Carcinoma of forehead h/o Cdiff Plan: Transferred to Medical Floor for Observation Other orders as indicated above Routine AM labs Clear liquid, then Heart Healthy Diet in AM PT/OT CM/SW DVT Prophylaxis/GI Prophylaxis Code Status: DNR/DNI; PCP: Dr. Parrish LOS>96 hours with pain management--->currently controlled. Has been refused by [facility] today, 09/29/18. Possible D/C in AM to [facility] D/C Plan: * PT for ambulation/gait training and nonweightbearing on right side * F/U with Dr. Yazan cuellopt
[2018-09-30] MEDS ORDERED: Warfarin 5 MG Tab PO SCH (18:00)
[2018-10-01] MEDS: Calcium Carbonate/Vitamin D3 600 MG-200 Units Tab PO SCH ×2 (05:43→06:12)
[2018-10-01] MEDS: Pantoprazole 40 MG Tab.CR PO SCH (05:44)
[2018-10-01] MEDS: Acetaminophen/Codeine 300-30 MG Tab PO PRN (06:26)
--- NOTE | 2018-10-01 07:46 | PCM.DCSUM1 ---
Discharge Summary - Hospital Course HPI Initial Comments: This is an 88 yo female with past medical hx/o Paroxysmal Afib, DVT/VTE, HLD, GERD, Hiatal Hernia, CKD, Urinary Incontinence, Depression, Anxiety, Obesity, Basal Cell Carcinoma of forehead, h/o Cdiff who comes in for assisted living placement. Her initial workup in the ED shows a CBC remarkable for RBC 3.86, MCV 101.8, MCHC 30.8, RDW 48.6, Neut 67% with no bandemia, Eosinophils 6%. Coagulation studies show PT 45, INR 4.25. Her chemistry is remarkable for BUN 23, Cr 1.3, GFR 39, Albumin 3. UA is not impressive for UTI. CXR shows nothing acute. She is subsequently admitted to the medical floor on telemetry. She is a DNR/ DNI. Her PCP is Dr. Parrish. Diagnosis: Stroke: No - Discharge Data Discharge Date: 10/01/18 (Admit date: 09/25/18) Discharge Disposition: DC/Tfer to SNF 03 Condition: Good - Patient Summary/Data Consults: Consultations 09/24/18 13:14 Consult to Case Management/Lead Embedded Software Engineer [CONS] ONETIME 09/24/18 19:55 OT Evaluation and Treatment [CONS] Routine PT Evaluation and Treatment [CONS] Routine 09/25/18 14:41 Consult to Physician [CONS] Routine 09/25/18 16:27 PT Evaluation and Treatment [CONS] Routine 09/26/18 15:49 SEAT NAILER Evaluation and Treatment [CONS] Routine Labs Pending at D/C: None Recommended Follow-up Testing/Procedures: Follow-up with PCP within 7-10 days -Suggest re-check CBC, INR, and BMP at that time. Follow-up with Dr. Hand within 1 week Hospital Course: I/P: Acute: Assisted Living Placement * Pt's daughters don't feel they can't manage their mother at home * She has had recent fall/R hip fracture * Evaluated in ED for fall on 09/22/18--> CT showed only scalp hematoma * Uses a walker * Daughters suspect new-onset dementia * Pt passed SEAT NAILER cog eval * Clinically there does seem to be some delay with conversation/processing, but she is A+O x 3 * PT/OT * CM/SW consult for placement Right Hip fx * 09/12/18 had difficulty getting out of car and has had pain since * 08/24/18 Seen in walk-in clinic--> Xray negative; Tylenol 3 prescribed * CT hip 09/25/18--> Slightly impacted subcapital fracture within the right hip, will repeat 09/28/18 -> Repeat stable * Pain management PRN * PT/OT * Consult orthopedic Dr. Hand--> pt has currently declined surgery * Recommends PT for ambulation/gait training and non-weight bearing on right side * F/U outpt and get repeat XR; if fracture becomes displaced will discuss surgery option again Resolved: Supratherapeutic INR * INR 4.25-->2.73 * Hold Warfarin for now--> RESUME HOME DOSE, restarted. * Monitor * F/U with PCP Chronic: Paroxysmal Afib DVT/VTE HLD GERD Hiatal Hernia CKD Urinary Incontinence Depression Anxiety Obesity Basal Cell Carcinoma of forehead h/o Cdiff Plan: Transferred to Medical Floor for Observation Other orders as indicated above Routine AM labs Clear liquid, then Heart Healthy Diet in AM PT/OT CM/SW DVT Prophylaxis/GI Prophylaxis Code Status: DNR/DNI; PCP: Dr. Parrish LOS>96 hours with pain management--->currently controlled. Has been refused by [facility] today, 09/29/18. Possible D/C in AM to [facility] D/C Plan: * PT for ambulation/gait training and non-weightbearing on right side * F/U with Dr. Hand outpt Overall Amparo did ok. She came in as a patient who was unable to care for herself anymore and who was having right hip pain. Family and patient were requesting placement. He had been evaluated prior 2/2 a fall plane film radiographs were reportedly obtained which showed no acute fractures and only a scalp hematoma. While here CT scan was obtained which showed a slightly impacted subcapital fracture within the right hip. Dr. Hand was consulted and recommended non-weightbearing status on the right side along with PT for gait training. He discussed surgical options with the patient and family and throughout her stay all remained certain they did not want surgery unless absolutely necessary. Because of this a repeat CT scan was obtained to ensure the fracture remained stable. Repeat CT was obbtained 09/28/18 and interpreted as "1. subcapital fracture within the right hip. Very minimal apex anterior angulation is seen which is an interval change from pervious study. Findings otherwise stable." She continued to work with PT/OT while here and this should continue at SNF. She has been taking tylenol with codeine which has been controlling her pain well. She was started on tylenol TID for calcium and vitamin D. Additionally her INR was elevated at 4.25 on arrival. Warfarin was held and her INR responded appropriately and trended down. She was restarted on her home dose of warfarin prior to discharge and her PCP should re-check this on follow-up. Also recommending repeat CBC and BMP. She was instructed to follow -up with her PCP withing 7-[address] Hand within one week. Recommend repeat imaging with either provider to ensure fracture remains stable. She was given an incentive spiormetry while here and instructed to continue that until she becomes more mobile. She did require 1L of oxygen briefly during her stay but has been off for several days. She will be discharged today to [facility]. - Patient Instructions Diet: Heart Healthy Diet Activity: Non Weight Bearing (On right leg) Driving: Do Not Drive Notify Provider of: Fever, Increased Pain, Swelling and Redness, Nausea and/or Vomiting Other/Special Instructions: -Follow-up with PCP within 7-10 days of discharge. -Follow-up with Dr. Hand within 1 week of discharge. -Non-weightbearing status on right side until directed otherwise by Dr. Hand. -Continue PT/OT while in SNF. -Resume home medications as indicated\\. -Continue to utilize incentive spirometry (clear/blue device you inhale through) until you are more mobile. -Should symptoms return or worsen, contact PCP or return to the ED. - Discharge Plan *PRESCRIPTION DRUG MONITORING PROGRAM REVIEWED*: Not Applicable *COPY OF PRESCRIPTION DRUG MONITORING REPORT IN PATIENT VINH: Not Applicable Prescriptions/Med Rec: Calcium Carbonate/Vitamin D3 [Calcium Carbonate/Vitamin D 600 MG-200 Unit] 1 tab PO TIDMEALS #40 tablet Home Medications: Home Meds Diltiazem HCl [Diltiazem 24Hr Cd] 180 mg PO DAILY 07/09/14 [History] Docusate Sodium 100 mg PO BID PRN 07/09/14 [History] LORazepam 0.5 mg PO BID PRN 07/09/14 [History] Omeprazole [Prilosec] 10 mg PO BID 07/09/14 [History] Potassium Chloride 10 meq PO DAILY 07/09/14 [History] Warfarin [Coumadin] 5 mg PO SUMOTUTHFR 07/09/14 [History] Warfarin [Coumadin] 7.5 mg PO WESA 07/09/14 [History] Ferrous Sulfate 325 mg PO WEEKLY 09/22/18 [History] PARoxetine [Paxil CR] 25 mg PO DAILY 09/22/18 [History] Acetaminophen with Codeine [Tylenol with Codeine #3 Tablet] 30 - 300 mg PO Q6H PRN 09/24/18 [History] Albuterol [Proventil HFA] 2 puff INH Q6H PRN 09/24/18 [History] Alpha Lipoic Acid 600 mg PO DAILY PRN MDD 1 09/24/18 [History] Budesonide/Formoterol [Symbicort 80-4.5 MCG] 2 puff INH BID 09/24/18 [History] Guaifenesin/Pseudoephedrne HCl [Mucinex D ER Tablet] 1 tab PO Q12H 09/24/18 [ History] Metoprolol Tartrate 12.5 mg PO BID 09/24/18 [History] Non-Formulary Medication [NF Drug] 1 cap PO BID 09/24/18 [History] Acetaminophen [Tylenol] 325 mg PO Q4H PRN tablet 10/01/18 [Rx] Calcium Carbonate/Vitamin D3 [Calcium Carbonate/Vitamin D 600 MG-200 Unit] 1 tab PO TIDMEALS #40 tablet 10/01/18 [Rx] Cholecalciferol (Vitamin D3) [Vitamin D3] 5,000 unit PO DAILY tablet 10/01/18 [ Rx] Oxygen Therapy Mode: Room Air Referrals: Ming Hand MD [Physician] - (Pt to follow-up with [facility] in 1 week of discharge. ) Elliott Parrish MD [Primary Care Provider] - - Discharge Summary/Plan Comment DC Time >30 min.: Yes (50 minutes ) - General Info Date of Service: 10/01/18 Admission Dx/Problem (Free Text: Admission Diagnosis/Problem Admission Diagnosis/Problem INR (international normal ratio) abnormal Subjective Update: In to see Amparo. She is sitting up in the chair and her daughter is at bedside. She continues to be very stable. She has been working with PT/OT. Discussed discharge plan with both her and her daughter and answered any questions. No patient, family, or nursing concerns. She will have follow-up with Dr. Hand and her PCP. Functional Status: Reports: Pain Controlled, Tolerating Diet, Urinating, Incentive Spirometry. Denies: Ambulating, New Symptoms - Review of Systems General: Reports: No Symptoms. Denies: Fever, Weakness, Fatigue, Malaise, Chills HEENT: Reports: No Symptoms. Denies: Headaches Pulmonary: Reports: No Symptoms. Denies: Shortness of Breath, Pleuritic Chest Pain, Cough, Sputum, Wheezing Cardiovascular: Reports: No Symptoms. Denies: Chest Pain, Palpitations, Dyspnea on Exertion, Edema, Lightheadedness Gastrointestinal: Reports: No Symptoms. Denies: Abdominal Pain, Constipation, Diarrhea, Nausea, Vomiting Genitourinary: Reports: No Symptoms Musculoskeletal: Reports: Leg Pain (right sided from fracture, improving ) Skin: Reports: No Symptoms Neurological: Reports: Confusion (Asks occasional bizarre or random quesitons but A&Ox3), Difficulty Walking, Gait Disturbance. Denies: Headache, Numbness, Tingling, Trouble Speaking, Weakness Psychiatric: Reports: No Symptoms - Patient Data Vitals - Most Recent: Last Vital Signs Temp 98.0 F 10/01/18 03:00 Pulse 74 10/01/18 03:00 Resp 18 10/01/18 03:00 BP 130/60 10/01/18 03:00 Pulse Ox 92 L 10/01/18 03:00 Weight - Most Recent: 202 lb 4 oz I&O - Last 24 hours: Intake & Output 09/30/18 10/01/18 10/01/18 22:59 06:59 14:59 Intake Total 1080 200 Output Total 1100 Balance -20 200 Med Orders - Current: Current Medications Acetaminophen (Tylenol) 325 mg PO Q4H PRN PRN Reason: PAIN Last Admin: 09/30/18 21:08 Dose: 325 mg Acetaminophen/Codeine Phosphate (Tylenol With Codeine No.3 300mg/30mg) 1 tab PO Q6H PRN PRN Reason: Pain Last Admin: 10/01/18 06:26 Dose: 1 tab Albuterol (Proventil Hfa) 0 gm INH Q6H PRN PRN Reason: Shortness of Breath Last Admin: 09/30/18 20:30 Dose: 2 puff Bisacodyl (Dulcolax) 5 mg PO DAILY PRN PRN Reason: Constipation Calcium Carbonate (Calcium Carbonate/Vitamin D 600 Mg-200 Unit) 1 tab PO TIDMEALS [facility] Last Admin: 10/01/18 06:12 Dose: Not Given Cholecalciferol (Vitamin D3) 5,000 unit PO DAILY [facility] Last Admin: 09/30/18 08:55 Dose: 5,000 unit Diltiazem HCl (Cardizem Cd) 180 mg PO DAILY [facility] Last Admin: 09/30/18 08:51 Dose: 180 mg Diphenhydramine HCl (Benadryl) 25 mg PO Q4H PRN PRN Reason: ALLERGIES Docusate Sodium (Colace) 100 mg PO BID PRN PRN Reason: Constipation Last Admin: 09/28/18 20:44 Dose: 100 mg Ferrous Sulfate (Ferrous Sulfate) 325 mg PO MoWeFr@0900 [facility] Last Admin: 09/29/18 08:06 Dose: 325 mg Guaifenesin/Phenylephrine HCl (Robitussin Dm) 10 ml PO QID PRN PRN Reason: Cough Last Admin: 09/25/18 15:34 Dose: 10 ml Lorazepam (Ativan) 0.5 mg PO BID PRN PRN Reason: Anxiety Last Admin: 10/01/18 05:43 Dose: 0.5 mg Magnesium Hydroxide (Milk Of Magnesia) 30 ml PO Q12H PRN PRN Reason: Constipation Metoprolol Tartrate (Lopressor) 12.5 mg PO BID [facility] Last Admin: 09/30/18 21:07 Dose: 12.5 mg Pantoprazole Sodium (Protonix) 40 mg PO BIDAC [facility] Last Admin: 10/01/18 05:44 Dose: 40 mg Paroxetine HCl (Paxil) 0 mg PO DAILY [facility] Last Admin: 09/30/18 08:58 Dose: 5 mg Paroxetine HCl (Paxil) 20 mg PO DAILY [facility] Last Admin: 09/30/18 08:52 Dose: 20 mg Levalbuterol Hcl [ (Xopenex] Inhaler) 0 each INH Q6H PRN PRN Reason: Shortness of Breath Guaifenesin 400mg (*Own Med) 0 each PO Q12HR [facility] Last Admin: 09/30/18 21:07 Dose: 1 each (Budesonide/Kwsdogxczp90/4.5 2 Puff)*Pt Own Med* 0 each INH BID [facility] Last Admin: 09/30/18 20:30 Dose: 2 each Polyethylene Glycol (Miralax) 17 gm PO DAILY PRN PRN Reason: Constipation Last Admin: 09/29/18 08:18 Dose: 17 gm Potassium Chloride (Klor-Con 10) 10 meq PO DAILY [facility] Last Admin: 09/30/18 08:51 Dose: 10 meq Pyridoxine HCl (Vitamin B6-Pyridoxine) 25 mg PO DAILY [facility] Last Admin: 09/30/18 08:56 Dose: 25 mg Senna/Docusate Sodium (Senna Plus) 1 tab PO BID PRN PRN Reason: Constipation Warfarin Sodium (Pharmacy To Dose - Warfarin) 0 dose .XX ASDIRECTED PRN PRN Reason: RX TO DOSE WARFARIN Discontinued Medications Acetaminophen/Codeine Phosphate (Tylenol With Codeine No.3 300mg/30mg) 30 - 300 tab PO Q6H PRN PRN Reason: Pain Last Admin: 09/27/18 08:57 Dose: 1 tab Diltiazem HCl (Cardizem Cd) 180 mg PO DAILY [facility] Lorazepam (Ativan) 0.5 mg PO BID PRN PRN Reason: Anxiety Last Admin: 09/25/18 20:47 Dose: 0.5 mg Metoprolol Tartrate (Lopressor) 0 mg PO BID [facility] Last Admin: 09/27/18 09:00 Dose: 12.5 mg (Albuterol Mdi Puff) *Pt Own Med* 2 puff INH Q6H PRN PRN Reason: Shortness of Breath Last Admin: 09/25/18 10:02 Dose: 2 puff Non-Formulary Medication (Alpha Lipoic Acid [Alpha Lipoic Acid]) 600 mg PO DAILY PRN PRN Reason: neuropathy (Budesonide/Bnedmvydep47/4.5 2 Puff)*Pt Own Med* 2 puff INH BID [facility] Last Admin: 09/30/18 08:41 Dose: 2 puff Non-Formulary Medication (Cyanocobalamin (Vitamin B-12) [Cyanocobalamin Injection]) 5,000 mcg IM WEEKLY [facility] Non-Formulary Medication (Docusate Sodium [Docusate Sodium]) 100 mg PO BID PRN PRN Reason: Constipation Non-Formulary Medication (Guaifenesin/Pseudoephedrne Hcl) 1 tab PO Q12H [facility] Last Admin: 09/24/18 21:58 Dose: Not Given (Lorazepam [ Lorazepam] 0.5 Mg)* Pt Own Med* 0.5 mg PO BID PRN PRN Reason: Anxiety Last Admin: 09/24/18 22:03 Dose: 0.5 mg (Metoprolol Tartrate [Metoprolol Tartrate] 25 Mg)*Pt Own Med* 0 mg PO BID [facility] Last Admin: 09/25/18 09:11 Dose: 12.5 mg Non-Formulary Medication (Thiamine Hcl [Vitamin B-1]) 50 mg PO ASDIRECTED [facility] Non-Formulary Medication (Warfarin [Coumadin]) 5 mg PO SUTUTH [facility] Non-Formulary Medication (Warfarin [Coumadin]) 7.5 mg PO MOWEFRSA [facility] Last Admin: 09/24/18 21:28 Dose: Not Given Guaifenesin 400mg (*Own Med) 1 each PO Q12HR [facility] Last Admin: 09/30/18 08:50 Dose: 1 each Paroxetine HCl (Paxil) 20 mg PO DAILY [facility] Diltiazem 24hr Cd (180 Mg Ptom) 0 each PO DAILY [facility] Last Admin: 09/25/18 09:26 Dose: 1 each Omeprazole 20 Mg Cap (Ptom) 0 each PO BIDAC [facility] Last Admin: 09/26/18 05:27 Dose: 1 each Paroxetine 20 Mg Tab (Ptom) 0 each PO DAILY [facility] Last Admin: 09/25/18 09:28 Dose: 1 each Paroxetine 10 Mg Tab (Ptom) 0 each PO DAILY [facility] Last Admin: 09/25/18 09:28 Dose: 0.5 each Potassium Chloride (Klor-Con 10) 10 meq PO DAILY [facility] Warfarin Sodium (Pharmacy To Dose - Warfarin) 1 dose .XX ASDIRECTED [facility] Warfarin Sodium (Coumadin) 5 mg PO ONETIME ONE Stop: 09/25/18 18:01 Last Admin: 09/25/18 18:41 Dose: 5 mg Warfarin Sodium (Coumadin) 5 mg PO QPM [facility] Stop: 09/26/18 21:00 Last Admin: 09/26/18 17:29 Dose: 5 mg Warfarin Sodium (Coumadin) 7.5 mg PO ONETIME ONE Stop: 09/27/18 18:01 Last Admin: 09/27/18 17:38 Dose: 7.5 mg Warfarin Sodium (Coumadin) 5 mg PO ONETIME ONE Stop: 09/28/18 18:01 Last Admin: 09/28/18 17:46 Dose: 5 mg Warfarin Sodium (Coumadin) 5 mg PO QPM [facility] Stop: 09/29/18 18:01 Last Admin: 09/29/18 17:06 Dose: 5 mg Warfarin Sodium (Coumadin) 5 mg PO QPM [facility] Stop: 09/30/18 18:01 Last Admin: 09/30/18 17:12 Dose: 5 mg - Exam Quality Assessment: Reports: DVT Prophylaxis General: Reports: Alert, Oriented, Cooperative, No Acute Distress HEENT: Reports: Pupils Equal, Pupils Reactive, EOMI, Mucous Membr. Moist/[place] Neck: Reports: Supple, Trachea Midline Lungs: Reports: Clear to Auscultation, Normal Respiratory Effort Cardiovascular: Reports: Regular Rate, Regular Rhythm GI/Abdominal Exam: Normal Bowel Sounds, Soft, Non-Tender, No Distention, No Abnormal Bruit (Female) Exam: Deferred Rectal (Female) Exam: Deferred Back Exam: Reports: Normal Inspection, Full Range of Motion Extremities: Normal Inspection, No Pedal Edema, Normal Capillary Refill, Leg Pain (right ), Limited Range of Motion (2/2 pain from fracture and non-weight bearing status ) Skin: Reports: Warm, Dry, Intact Neurological: Reports: No New Focal Deficit Psy/Mental Status: Reports: Alert, Normal Affect, Normal Mood
[2018-10-01] MEDS: BUDESONIDE INH SCH (08:38)
[2018-10-01] MEDS: FORMOTEROL INH SCH (08:38)
[2018-10-01] MEDS: ALBUTEROL INH PRN (08:38)
[2018-10-01] MEDS: Metoprolol Tartrate 25 MG Tab PO SCH (09:06)
[2018-10-01] MEDS: DILTIAZEM PO SCH (09:07)
[2018-10-01] MEDS: Ferrous Sulfate 325 MG Tab PO SCH (09:07)
[2018-10-01] MEDS: [UNRECOGNIZED DRUG - OTHER] PO SCH (09:07)
[2018-10-01] MEDS: Vitamin B6-pyridOXINE 50 MG Tab PO SCH (09:07)
[2018-10-01] MEDS: PAROXETINE 20 MG PO SCH (09:07)
[2018-10-01] MEDS: Cholecalciferol (Vitamin D3) 5,000 UNIT Tab PO SCH (09:07)
[2018-10-01] MEDS: Potassium Chloride 10 MEQ TAB PO SCH (09:07)
[2018-10-01] MEDS: Docusate Sodium 100 MG Cap PO PRN (09:07)
[2018-10-01] MEDS: GUAIFENESIN 400 MG PO SCH (09:08)
[2018-10-01] MEDS: PAROXETINE 10 MG PO SCH (09:08)
[2018-10-01 09:11] VITALS: BP 120/70
== END 2018-10-01 10:57 | DRG 544 ==
LOC: JD.ED 12:50 → UNDOADMOB 16:54 → JD.MS 16:54 → OBSVTOIN 09-25 16:46
PROVIDERS: ADMIT Internal Medicine Cardiovascular Disease; ATTEND Internal Medicine Cardiovascular Disease
DX: M79.604 Pain in right leg (principal); M80.051A Age-related osteoporosis with current pathological fracture, right femur, initial encounter for fracture; W19.XXXA Unspecified fall, initial encounter; I48.0 Paroxysmal atrial fibrillation; K21.9 Gastro-esophageal reflux disease without esophagitis; N18.9 Chronic kidney disease, unspecified; N39.3 Stress incontinence (female) (male); F03.90 Unspecified dementia, unspecified severity, without behavioral disturbance, psychotic disturbance, mood disturbance, and anxiety; F41.9 Anxiety disorder, unspecified; F32.9 Major depressive disorder, single episode, unspecified; E66.9 Obesity, unspecified; K44.9 Diaphragmatic hernia without obstruction or gangrene; R79.1 Abnormal coagulation profile; H54.7 Unspecified visual loss; Z88.5 Allergy status to narcotic agent; Z88.8 Allergy status to other drugs, medicaments and biological substances; Z88.1 Allergy status to other antibiotic agents; Z91.041 Radiographic dye allergy status; Z86.718 Personal history of other venous thrombosis and embolism; Z79.899 Other long term (current) drug therapy; Z85.828 Personal history of other malignant neoplasm of skin; R41.82 Altered mental status, unspecified; R41.0 Disorientation, unspecified; Z87.891 Personal history of nicotine dependence; Z79.01 Long term (current) use of anticoagulants; J45.909 Unspecified asthma, uncomplicated; E78.5 Hyperlipidemia, unspecified; Z66 Do not resuscitate; Z68.35 Body mass index [BMI] 35.0-35.9, adult
CPT/HCPCS: 36415 ×2; 71045; 73700; 80048; 80053; 81001; 83735 ×2; 84484; 85007; 85025; 85027; 85610 ×2; 94640 ×2; 97110 ×2; 97116; 97162; 97166; 97530 ×2; 99285; A9270 ×12; 71046; 71046-26; 82607; 82746; 92523-GN; 94760; 94761; 99284; G0378